=== PATIENT | female | born 1940 | race Caucasian/White ===

== ENCOUNTER 2019-08-17 01:42 | Inpatient (IN) | payer MEDICARE ==
--- NOTE | 2019-08-17 02:20 | CT ---
EXAMINATION TYPE: CT brain radha mojica con DATE OF EXAM: 08/17/2019 COMPARISON: None HISTORY: Fall Headache. Neck pain CT DLP: 1277.3 mGycm Automated exposure control for dose reduction was used. There is moderate diffuse cerebral atrophy. There is no mass effect nor midline shift. There is no si gn of intracranial hemorrhage. Calvarium appears intact. There is moderate mucosal thickening in the sphenoid and ethmoid sinuses. The calvarium is intact. There is multilevel anterior fusion surgery from C3 to C6. Vertebra show some straightening. The skul l base is intact. There is no evidence of a fracture. Posterior elements are intact. There is mild hy pertrophic multilevel facet arthropathy. IMPRESSION: Moderate cerebral atrophy. No acute intracranial abnormality. Multilevel cervical spine surgery. No acute bony abnormality. No fracture.
--- NOTE | 2019-08-17 02:24 | XR ---
EXAMINATION TYPE: XR chest 1V DATE OF EXAM: 08/17/2019 COMPARISON: NONE HISTORY: Fall. Pain. TECHNIQUE: FINDINGS: There is a 4 cm patch of airspace consolidation in the lateral right upper lobe. The other lung lucas are clear. There is no heart failure. Thoracic aorta is atheromatous. There is a left axi llary pacemaker. There is no pleural effusion or pneumothorax. IMPRESSION: Right upper lobe pneumonia. Normal heart. No heart failure seen. Old granulomatous diseas e.
[2019-08-17] MEDS ORDERED: AZITHROMYCIN 500 MG TAB PO STA (02:42)
[2019-08-17 03:14] LABS: Basophils # (A) 0.1 k/uL (0-0.2); Basophils % (A) 1 %; Eosinophils # (A) 0.2 k/uL (0-0.7); Eosinophils % (A) 2 %; HCT 33.4 % (34.0-46.0); HGB 11.4 gm/dL (11.4-16.0); Lymphocytes # (A) 1.1 k/uL (1.0-4.8); Lymphocytes % (A) 10 %; MCH 30.1 pg (25.0-35.0); MCHC 34.1 g/dL (31.0-37.0); MCV 88.1 fL (80.0-100.0); Mean Platelet Volume 7.9; Monocytes # (A) 0.6 k/uL (0-1.0); Monocytes % (A) 5 %; Neutrophils # (A) 8.4 k/uL (1.3-7.7); Neutrophils % (A) 80 %; Platelet Count 218 k/uL (150-450); RBC 3.79 m/uL (3.80-5.40); RDW 12.9 % (11.5-15.5); WBC 10.4 k/uL (3.8-10.6)
[2019-08-17 03:27] LABS: Albumin 3.3 g/dL (3.5-5.0); Calcium 8.6 mg/dL (8.4-10.2); Potassium 4.1 mmol/L (3.5-5.1); Total Bilirubin 0.6 mg/dL (0.2-1.3); Total Protein 6.9 g/dL (6.3-8.2)
[2019-08-17] MEDS ORDERED: DIPH,PERTUS(ACELL)TETVAC-LF 0.5 ML VIAL IM ONE (03:32)
[2019-08-17] MEDS ORDERED: NALOXONE 0.4 MG/ML 1 ML VIAL IV PRN (03:46)
--- NOTE | 2019-08-17 03:49 | ED ---
General Adult HPI - General Chief complaint: Fall Stated complaint: fall Time Seen by Provider: 08/17/19 01:49 Source: EMS, RN notes reviewed, old records reviewed Mode of arrival: EMS Limitations: altered mental status - History of Present Illness Initial comments: 79-year-old female patient past history significant for angina, hypertension presents to ED for chief complaint of fall. [facility]. Staff was a [facility] heard pathology. They went to evaluate patient and noted patient be on the ground. Appeared to have fallen out of bed. They were reportedly in room within seconds. No LOC noted. Pt was reportedly acting at baseline. Pt has an abrasion above left eye. Pt is not on any blood thinners. Denies any complaints. Does not know what happened. this is reportedly her baseline. Systemic: Pt denies fatigue, fever/chills, rash. Pt denies weakness, night sweats, weight loss. Neuro: Pt denies headache, visual disturbances, syncope or pre-syncope. HEENT: Pt denies ocular discharge or irritation, otalgia, rhinorrhea, pha ryngitis or notable lymphadenopathy. Cardiopulmonary: Pt denies chest pain, SOB, heart palpitations, dyspnea on exertion. Abdominal/GI: Pt denies abdominal pain, n/v/d. : Pt denies dysuria, burning w/ urination, frequency/urgency. Denies new onset urinary or bowel incontinence. MSK: Pt denies myalgia, loss of strength or function in extremities. Neuro: Pt denies new onset weakness, paresthesias. - Related Data Allergies Allergy/AdvReac Type Severity Reaction Status Date / Time penicillin V Allergy Unknown Verified 08/17/19 01:55 Review of Systems ROS Statement: Those systems with pertinent positive or pertinent negative responses have been documented in the HPI. ROS Other: All systems not noted in ROS Statement are negative. Past Medical History Past Medical History: Dementia, Hypertension History of Any Multi-Drug Resistant Organisms: Unobtainable Past Surgical History: Pacemaker Past Psychological History: Unable to Obtain Smoking Status: Unknown if ever smoked Past Alcohol Use History: Unable to Obtain Past Drug Use History: Unable to Obtain General Exam - General Exam Comments Initial Comments: Constitutional: NAD, Pleasantly demented. Pt has pleasant affect. HEENT: NC/AT, trachea midline, neck supple, no lymphadenopathy. Posterior pharynx non erythematous, without exudates. External ears appear normal, without discharge. Mucous membranes moist. Eyes PERRLA, EOM intact. There is no scleral icterus. No pallor noted. Cardiopulmonary: RRR, no murmurs, rubs or gallops, no JVD noted. Lungs CTAB in anterior and posterior lucas. No peripheral edema. Abdominal exam: Abdomen soft and non-distended. Abdomen non-tender to palpation in all 4 quadrants. Bowel sounds active in LLQ. No hepatosplenomegaly. No ecchymosis Neuro: CN II-XII grossly intact. No nuchal rigidity. No raccon eyes, no lala sign, no hemotympanum. No cervical spinal tenderness. MSK: Small abrasion and contusion above left eye. No posterior calf tenderness bilaterally, homans sign negative bilaterally. Posterior tibialis and radial pulse +2 bilaterally. Sensation intact in upper and lower extremities. Full active ROM in upper and lower extremities, 5/5 stregnth. Limitations: altered mental status Course Vital Signs 08/17/19 08/17/19 01:49 02:47 Temperature 98.2 F 97.9 F Pulse Rate 79 68 Respiratory 15 15 Rate Blood Pressure 128/82 129/59 O2 Sat by Pulse 95 96 Oximetry Medical Decision Making - Medical Decision Making 79-year-old female patient past history significant for angina, hypertension presents to ED for chief complaint of fall. [facility] lives in [facility]. Staff was a [facility] heard pathology. They went to evaluate patient and noted patient be on the ground. Appeared to have fallen out of bed. They were reportedly in room within seconds. No LOC noted. Pt was reportedly acting at baseline. Pt has an abrasion above left eye. Pt is not on any blood thinners. Denies any complaints. Does not know what happened. this is reportedly her baseline. Pt VSS, afebrile. Physical exam displayed: Small abrasion and contusion above left eye. O2 investigations revealed mildly increased BUN of 31. Otherwise nonimmpressive. CT brain and C-spine displayed moderate cerebral atrophy. No acute intracranial abnormality. Multilevel cervical spinal surgery. No bony abnormality. No fracture. Chest x-ray displayed a right upper lobe pneumonia. Normal heart, no heart failure seen. Old granulomatous disease. EKG is nonischemic. No prior for comparison. Patient will be admitted for community acquired pneumonia. Initiated on Rocephin and azithromycin. No known recent hospital stays. Pt will be admitted to hospital. Case discussed with Dr. Perez. - Lab Data Result diagrams: 08/17/19 01:45 08/17/19 01:45 Lab Results 08/17/19 08/17/19 08/17/19 Range/Units 01:45 01:45 01:45 WBC 10.4 (3.8-10.6) k/uL RBC 3.79 L (3.80-5.40) m/uL Hgb 11.4 (11.4-16.0) gm/dL Hct 33.4 L (34.0-46.0) % MCV 88.1 (80.0-100.0) fL MCH 30.1 (25.0-35.0) pg MCHC 34.1 (31.0-37.0) g/dL RDW 12.9 (11.5-15.5) % Plt Count 218 (150-450) k/uL Neutrophils % 80 % Lymphocytes % 10 % Monocytes % 5 % Eosinophils % 2 % Basophils % 1 % Neutrophils # 8.4 H (1.3-7.7) k/uL Lymphocytes # 1.1 (1.0-4.8) k/uL Monocytes # 0.6 (0-1.0) k/uL Eosinophils # 0.2 (0-0.7) k/uL Basophils # 0.1 (0-0.2) k/uL Sodium 140 (137-145) mmol/L Potassium 4.1 (3.5-5.1) mmol/L Chloride 109 H (98-107) mmol/L Carbon Dioxide 26 (22-30) mmol/L Anion Gap 5 mmol/L BUN 31 H (7-17) mg/dL Creatinine 0.91 (0.52-1.04) mg/dL Est GFR (CKD-EPI)AfAm 68 (>60 ml/min/1.73 sqM) Est GFR (CKD-EPI)NonAf 59 (>60 ml/min/1.73 sqM) Glucose 116 H (74-99) mg/dL Plasma Lactic Acid Grant (0.7-2.0) mmol/L Calcium 8.6 (8.4-10.2) mg/dL Total Bilirubin 0.6 (0.2-1.3) mg/dL AST 26 (14-36) U/L ALT 15 (4-34) U/L Alkaline Phosphatase 65 (38-126) U/L Troponin I <0.012 (0.000-0.034) ng/mL Total Protein 6.9 (6.3-8.2) g/dL Albumin 3.3 L (3.5-5.0) g/dL Influenza Type A RNA (Not Detectd) Influenza Type B (PCR) (Not Detectd) 08/17/19 08/17/19 Range/Units 02:58 03:20 WBC (3.8-10.6) k/uL RBC (3.80-5.40) m/uL Hgb (11.4-16.0) gm/dL Hct (34.0-46.0) % MCV (80.0-100.0) fL MCH (25.0-35.0) pg MCHC (31.0-37.0) g/dL RDW (11.5-15.5) % Plt Count (150-450) k/uL Neutrophils % % Lymphocytes % % Monocytes % % Eosinophils % % Basophils % % Neutrophils # (1.3-7.7) k/uL Lymphocytes # (1.0-4.8) k/uL Monocytes # (0-1.0) k/uL Eosinophils # (0-0.7) k/uL Basophils # (0-0.2) k/uL Sodium (137-145) mmol/L Potassium (3.5-5.1) mmol/L Chloride (98-107) mmol/L Carbon Dioxide (22-30) mmol/L Anion Gap mmol/L BUN (7-17) mg/dL Creatinine (0.52-1.04) mg/dL Est GFR (CKD-EPI)AfAm (>60 ml/min/1.73 sqM) Est GFR (CKD-EPI)NonAf (>60 ml/min/1.73 sqM) Glucose (74-99) mg/dL Plasma Lactic Acid Grant 0.5 L (0.7-2.0) mmol/L Calcium (8.4-10.2) mg/dL Total Bilirubin (0.2-1.3) mg/dL AST (14-36) U/L ALT (4-34) U/L Alkaline Phosphatase (38-126) U/L Troponin I (0.000-0.034) ng/mL Total Protein (6.3-8.2) g/dL Albumin (3.5-5.0) g/dL Influenza Type A RNA Not Detected (Not Detectd) Influenza Type B (PCR) Not Detected (Not Detectd) - EKG Data -: EKG Interpreted by Me (and Dr. Perez) EKG Comments: Ventricular rate 71,. Full 166, QRS 74, QT/QTC 374/46. Normal sensory, lateral T-wave inversions noted. No prior for comparison. Disposition Clinical Impression: Community acquired pneumonia Disposition: ADMITTED IP TO THIS HOSP Condition: Serious Is patient prescribed a controlled substance at d/c from ED?: No Referrals: Juma Barker MD [Primary Care Provider] - 1-2 days
[2019-08-17] MEDS ORDERED: SODIUM CHLORIDE 0.9% 500 ML 500 ML IV STA (03:55)
[2019-08-17] MEDS: SODIUM CHLORIDE 0.9% 1,000 ML IV SCH ×2 (04:36→19:36)
[2019-08-17] MEDS ORDERED: IBUPROFEN 600 MG TAB PO PRN (10:33)
[2019-08-17] MEDS: ENOXAPARIN 40 MG/0.4 ML SYRINGE SQ SCH (12:43)
[2019-08-17] MEDS: MEMANTINE 10 MG TAB PO SCH ×2 (17:07→19:34)
[2019-08-17] MEDS ORDERED: ASPIRIN 81 MG PO SCH (20:00)
[2019-08-17] MEDS ORDERED: LOSARTAN 50 MG TAB PO SCH (20:00)
[2019-08-17] MEDS ORDERED: amLODIPine 10 MG TAB PO SCH (20:00)
--- NOTE | 2019-08-17 20:18 | P.HPIM ---
History of Present Illness H&P Date: 08/17/19 Chief Complaint: fell out of bed History of presenting complaint: This is a 79-year-old patient with the resident of [facility]. Antabuse little confused. Able to carry out a conversation tangent all directions. Staff at the [facility] heard a thud and went in and saw the patient was sleeping had rolled off the bed onto the floor. EMS was called out. Was sitting up in a chair. With the staff she was acting normal self. No confused. Which is her baseline. Was a small abrasion around the left eye and some swelling of the left nostril. Patient's brought to the ER. In the ER was a question of infiltrate on the computed tomography scan and admitted with a dose of antibiotic for pneumonia. Patient is a very poor historian. There is no documented fever or white count. Patient is tolerating her diet. Denies any cough. No sputum production. cheerful otherwise. Confused. Review of systems: GEN.: None EYES: Small abrasion above the left eye HEENT: None NECK: None RESPIRATORY: None CARDIOVASCULAR: None GASTROINTESTINAL: None GENITOURINARY: None MUSCULOSKELETAL: None LYMPHATICS: None HEMATOLOGICAL: None PSYCHIATRY: Baseline confused NEUROLOGICAL: None Past medical history to include: Dementia, hypertension, hypothyroid, CK disease stage III, sick sinus syndrome a pacemaker, incontinence Social history: Patient lives at [facility]. Has a public legal guardian. Ambulate independently. Pleasantly confused. Feet herself. No history of smoking or alcohol that is known. Family history: Patient cannot tell Physical examination: VITAL SIGNS: 98.2, 79, 15, 128/82, 95% room air GENERAL: [BMI 22.6, sitting up in the bed awake comfortable. EYES: Pupils equal. Conjunctiva normal. HEENT: External appearance of nose and ears normal, oral cavity grossly normal. NECK: JVD not raised; masses not palpable. HEART: First and second heart sounds are normal; no edema. LUNGS: Respiratory rate normal; clear to auscultation. ABDOMEN: Soft, nontender, liver spleen not palpable, no masses palpable. PSYCH: Pleasant 60 confusedl. NEUROLOGICAL: Cranial nerves grossly intact; no facial asymmetry, power and se nsation grossly intact. LYMPHATICS: No lymph nodes palpable in the axilla and neck DERMATOLOGICAL: Slight bruising about the left eye, slight bruising: Left nostril INVESTIGATIONS, reviewed in the clinical context: White count 10.4 hemoglobin 11.4 platelets 208 potassium 4.1 bun 31 creatinine 0.91 Influenza a and B both negative EKG tracing personally reviewed by me-normal sinus rhythm Chest x-ray film personally reviewed by me-shows right upper lobe infiltrate Assessment: -Right upper lobe pneumonia suspect gram-negative organism -Fall from the bed onto the floor while patient was sleeping. No obvious precipitating factor. 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 Home medications resumed. Lovenox for DVT prophylaxis. Given IV fluids. Patient appetite is fair. We'll switch the patient over to oral antibiotics tomorrow. Past Medical History Past Medical History: Dementia, Hypertension History of Any Multi-Drug Resistant Organisms: Unobtainable Past Surgical History: Pacemaker Past Psychological History: Unable to Obtain Smoking Status: Unknown if ever smoked Past Alcohol Use History: Unable to Obtain Past Drug Use History: Unable to Obtain - Past Family History Father Family Medical History: Unable to Obtain Mother Family Medical History: Unable to Obtain Medications and Allergies Home Medications Medication Instructions Recorded Confirmed Type Aspirin EC [Ecotrin Low Dose] 81 mg PO HS@199908/17/19 08/17/19 History Ibuprofen [Motrin] 600 mg PO Q6H PRN 08/17/19 08/17/19 History Irbesartan [Avapro] 150 mg PO HS@199908/17/19 08/17/19 History Levothyroxine Sodium 112 mcg PO SUMOTUWETHSA@0600 08/17/19 08/17/19 History Levothyroxine Sodium [Synthroid] 56 mcg PO FR@0600 08/17/19 08/17/19 History Memantine [Namenda] 10 mg PO BID@0800,199908/17/19 08/17/19 History Oyster Shell 500mg + Vit D3 400iu 1 tab PO BID@0800,199908/17/19 08/17/19 History amLODIPine [Norvasc] 10 mg PO HS@199908/17/19 08/17/19 History Allergies Allergy/AdvReac Type Severity Reaction Status Date / Time penicillin V Allergy Unknown Verified 08/17/19 07:41 Physical Exam Vitals: Vital Signs Temp Pulse Resp BP Pulse Ox 08/17/19 06:10 98.0 F 82 14 150/67 97 08/17/19 04:38 77 15 166/77 96 08/17/19 04:01 66 16 142/63 96 08/17/19 02:47 97.9 F 68 15 129/59 96 08/17/19 01:49 98.2 F 79 15 128/82 95 Intake and Output 08/16/19 08/17/19 08/17/19 22:59 06:59 14:59 Other: Weight 63.503 kg Results CBC & Chem 7: 08/17/19 01:45 08/17/19 01:45 Labs: Abnormal Lab Results - Last 24 Hours (Table) 08/17/19 08/17/19 08/17/19 Range/Units 01:45 01:45 02:58 RBC 3.79 L (3.80-5.40) m/uL Hct 33.4 L (34.0-46.0) % Neutrophils # 8.4 H (1.3-7.7) k/uL Chloride 109 H (98-107) mmol/L BUN 31 H (7-17) mg/dL Glucose 116 H (74-99) mg/dL Plasma Lactic Acid Grant 0.5 L (0.7-2.0) mmol/L Albumin 3.3 L (3.5-5.0) g/dL
[2019-08-17] MEDS ORDERED: AZITHROMYCIN 500 MG in SODIUM CHLORIDE 0.9% 250 ML IVPB SCH (21:00)
[2019-08-18 00:36] LABS: Appearance,Urine Clear (Clear); Bilirubin,Urine Negative (Negative); Blood,Urine Negative (Negative); Color,Urine Yellow; Glucose,Urine (UA) Negative (Negative); Ketones,Urine Negative (Negative); Leukocyte Esterase,Urine Negative (Negative); Mucus,Urine Rare /hpf; Nitrite,Urine Negative (Negative); Protein,Urine 1+ (Negative); RBC,Urine 2 /hpf (0-5); Specific Gravity,Urine 1.025 (1.001-1.035); Urobilinogen,Urine <2.0 mg/dL (<2.0); WBC,Urine 1 /hpf (0-5)
[2019-08-18] MEDS: SODIUM CHLORIDE 0.9% 1,000 ML IV SCH (06:02)
[2019-08-18] MEDS ORDERED: LEVOTHYROXINE 112 MCG TAB PO SCH (06:30)
[2019-08-18] MEDS: MEMANTINE 10 MG TAB PO SCH (09:11)
[2019-08-18] MEDS: ENOXAPARIN 40 MG/0.4 ML SYRINGE SQ SCH (09:11)
[2019-08-18 12:18] VITALS: BP 117/56; PULSE 78; RESP 16; TEMP 99.1
--- NOTE | 2019-08-18 12:20 | P.DS ---
Providers Date of admission: 08/17/19 06:28 Expected date of discharge: 08/18/19 Attending physician: Rhett Ingram Primary care physician: Juma [facility] [place] Course: Chief Complaint: fell out of bed History of presenting complaint: This is a 79-year-old patient with the resident of [facility]. At baseline pleasantly confused. Able to carry out a conversation tangent all directions. Staff at the [facility] heard a thud and went in and saw the patient was sleeping had rolled off the bed onto the floor. EMS was called out. Was sitting up in a chair. With the staff she was acting normal self. Baseline confused. Which is her baseline. a small abrasion around the left eye and some swelling of the left nostril. Patient's brought to the ER. In the ER was a question of infiltrate on the computed tomography scan and admitted with antibiotic for pneumonia. Patient is a very poor historian. There is no documented fever or white count. Patient is tolerating her diet. Denies any cough. No sputum production. cheerful otherwise. Confused. Today-very well. Slight nasal congestion. Otherwise comfortable Physical examination: VITAL SIGNS: 98.2, 81, 18, 107 but 53, 93% room air GENERAL: Laying in bed, comfortable EYES: Pupils equal. Conjunctiva normal. Slight abrasion above left eye healing well NECK: JVD not raised; masses not palpable. HEART: First and second heart sounds are normal; no edema. LUNGS: Respiratory rate normal; clear to auscultation. ABDOMEN: Soft, nontender, liver spleen not palpable, no masses palpable. PSYCH: Able to answer simple questions DERMATOLOGICAL: Slight bruising about the left eye, slight bruising: Left nostril INVESTIGATIONS, reviewed in the clinical context: White count 10.4 hemoglobin 11.4 platelets 208 potassium 4.1 bun 31 creatinine 0.91 Influenza a and B both negative EKG tracing personally reviewed by me-normal sinus rhythm Chest x-ray film personally reviewed by me-shows right upper lobe infiltrate Assessment: -Right upper lobe pneumonia suspect gram-negative organism -Fall from the bed onto the floor while patient was sleeping. 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 -Essential hypertension -Hypothyroid - sinus syndrome with a pacemaker -Public legal guardian Disposition: Assisted-living Patient Condition at Discharge: Stable Plan - Discharge Summary Discharge Rx Participant: No New Discharge Prescriptions: New Cefdinir [Omnicef] 300 mg PO Q12HR #6 capsule Continue Ibuprofen [Motrin] 600 mg PO Q6H PRN PRN Reason: Pain Levothyroxine Sodium [Synthroid] 56 mcg PO FR@0600 Oyster Shell 500mg + Vit D3 400iu 1 tab PO BID@799,1999 Levothyroxine Sodium 112 mcg PO SUMOTUWETHSA@0600 Memantine [Namenda] 10 mg PO BID@799,1999 Irbesartan [Avapro] 150 mg PO HS@1999 Aspirin EC [Ecotrin Low Dose] 81 mg PO HS@1999 amLODIPine [Norvasc] 10 mg PO HS@1999 Discharge Medication List Aspirin EC [Ecotrin Low Dose] 81 mg PO HS@199908/17/19 [History] Ibuprofen [Motrin] 600 mg PO Q6H PRN 08/17/19 [History] Irbesartan [Avapro] 150 mg PO HS@199908/17/19 [History] Levothyroxine Sodium 112 mcg PO SUMOTUWETHSA@0600 08/17/19 [History] Levothyroxine Sodium [Synthroid] 56 mcg PO FR@0600 08/17/19 [History] Memantine [Namenda] 10 mg PO BID@0800,199908/17/19 [History] Oyster Shell 500mg + Vit D3 400iu 1 tab PO BID@0800,199908/17/19 [History] amLODIPine [Norvasc] 10 mg PO HS@199908/17/19 [History] Cefdinir [Omnicef] 300 mg PO Q12HR #6 capsule 08/18/19 [Rx] Follow up Appointment(s)/Referral(s): Juma Barker MD [Primary Care Provider] - 1-2 days
[2019-08-21] MEDS ORDERED: LEVOTHYROXINE 112 MCG TAB PO SCH (06:30)
== END 2019-08-18 14:39 | disposition home health service (06) | DRG 179 ==
LOC: EEVIPCON 01:42 → SUPCPDRO 01:42 → EC 01:42 → 5NMEDONC 06:28
PROVIDERS: ADMIT Hospitalist; ATTEND Hospitalist
DX: J15.6 Pneumonia due to other Gram-negative bacteria (principal); E03.9 Hypothyroidism, unspecified; F02.80 Dementia in other diseases classified elsewhere, unspecified severity, without behavioral disturbance, psychotic disturbance, mood disturbance, and anxiety; G30.1 Alzheimer's disease with late onset; S00.212A Abrasion of left eyelid and periocular area, initial encounter; W06.XXXA Fall from bed, initial encounter; Z79.890 Hormone replacement therapy; Z79.899 Other long term (current) drug therapy; I12.9 Hypertensive chronic kidney disease with stage 1 through stage 4 chronic kidney disease, or unspecified chronic kidney disease; N18.3 Chronic kidney disease, stage 3 (moderate); R32 Unspecified urinary incontinence; Z88.0 Allergy status to penicillin
CPT/HCPCS: 36415; 70450; 71045; 72125; 80053; 81001; 83605; 84484; 85025; 87502; 90471; 90715; 93005; 96365; 96372; 99285

== ENCOUNTER 2020-08-18 11:04 | Inpatient (IN) | payer MEDICARE ==
[2020-08-18] MEDS ORDERED: SODIUM CHLORIDE 0.9% 1,000 ML IV STA (11:26)
--- NOTE | 2020-08-18 11:30 | ED ---
Seizure HPI - General Chief Complaint: Seizure Stated Complaint: Seizure Time Seen by Provider: 08/18/20 11:04 Source: EMS, RN notes reviewed, old records reviewed Mode of arrival: EMS Limitations: altered mental status - History of Present Illness Initial Comments: This is an 80-year-old with a history of dementia also hypertension who apparently started trazodone yesterday but today was noted have a seizure there is reported to be tonic-clonic lasting 2-3 minutes. It is unknown if there was head trauma involved. Patient was brought in by EMS with a cervical collar on. No reports of recent fevers chills nausea vomiting sweats diarrhea constipation. MD Complaint: seizure - Related Data Home Medications Medication Instructions Recorded Confirmed Aspirin EC [Ecotrin Low Dose] 81 mg PO DAILY@79908/17/19 08/18/20 Irbesartan [Avapro] 150 mg PO HS@199908/17/19 08/18/20 Levothyroxine Sodium 112 mcg PO SUMOTUWETHSA@59908/17/19 08/18/20 Levothyroxine Sodium [Synthroid] 56 mcg PO FR@59908/17/19 08/18/20 Memantine [Namenda] 10 mg PO BID@08,199908/17/19 08/18/20 Oyster Shell 500mg + Vit D3 400iu 1 tab PO DAILY@79908/17/19 08/18/20 Cholecalciferol [Vitamin D3 (25 1,000 unit PO DAILY@0800 08/18/20 08/18/20 Mcg = 1000 Iu)] Cyanocobalamin (Vitamin B-12) 1,000 mcg PO DAILY@0808/18/20 08/18/20 [Vitamin B-12] Docusate [Colace] 100 mg PO DAILY@0808/18/20 08/18/20 LORazepam [Ativan] 0.5 mg PO BID PRN 08/18/20 08/18/20 Melatonin 6 mg PO HS@199908/18/20 08/18/20 QUEtiapine [SEROquel] 25 mg PO DAILY@1200 08/18/20 08/18/20 amLODIPine [Norvasc] 5 mg PO HS@199908/18/20 08/18/20 busPIRone HCl [Buspar] 5 mg PO BID@0800,199908/18/20 08/18/20 traZODone HCL [Desyrel] 50 mg PO HS@199908/18/20 08/18/20 Allergies Allergy/AdvReac Type Severity Reaction Status Date / Time penicillin V Allergy Unknown Verified 08/18/20 11:30 Review of Systems ROS Statement: Those systems with pertinent positive or pertinent negative responses have been documented in the HPI. ROS Other: All systems not noted in ROS Statement are negative. Past Medical History Past Medical History: Dementia, Hypertension Additional Past Medical History / Comment(s): hypothyroid, CKD stage III, jamar min D defiency, SSS with pacer, occasional incontinence History of Any Multi-Drug Resistant Organisms: Unobtainable Past Surgical History: Pacemaker Past Anesthesia/Blood Transfusion Reactions: Unable to Obtain Type of Cardiac Device: Permanent Pacemaker Device Placement Date:: Public legal guardian believes pacer was placed sometime in 2019. Past Psychological History: Unable to Obtain Past Alcohol Use History: Unable to Obtain Past Drug Use History: Unable to Obtain - Past Family History Father Family Medical History: Unable to Obtain Mother Family Medical History: Unable to Obtain General Exam - General Exam Comments Initial Comments: Is a well-developed asthenic appearing female who is awake and alert but nonverbal with a cervical collar in place. No external signs of trauma Limitations: altered mental status General appearance: alert, in no apparent distress Head exam: Present: atraumatic, normocephalic, normal inspection Eye exam: Present: normal appearance, PERRL, EOMI. Absent: scleral icterus, conjunctival injection, periorbital swelling ENT exam: Present: mucous membranes dry Neck exam: Present: normal inspection, other (Cervical collar in place no definite tenderness palpation). Absent: tenderness, meningismus, lymphadenopathy Respiratory exam: Present: normal lung sounds bilaterally. Absent: respiratory distress, wheezes, rales, rhonchi, stridor Cardiovascular Exam: Present: regular rate, normal rhythm, normal heart sounds. Absent: systolic murmur, diastolic murmur, rubs, gallop, clicks GI/Abdominal exam: Present: soft, normal bowel sounds. Absent: distended, tenderness, guarding, rebound, rigid Extremities exam: Present: normal inspection, full ROM, normal capillary refill. Absent: tenderness, pedal edema, joint swelling, calf tenderness Back exam: Present: normal inspection Neurological exam: Present: alert, altered, CN II-XII intact Psychiatric exam: Present: flat affect Skin exam: Present: warm, dry, intact, normal color. Absent: rash Course Vital Signs 08/18/20 08/18/20 08/18/20 11:12 11:37 13:57 Temperature 97.6 F 97.6 F 97.8 F Pulse Rate 79 76 74 Respiratory 16 16 16 Rate Blood Pressure 138/81 144/72 O2 Sat by Pulse 99 100 95 Oximetry - Reevaluation(s) Reevaluation #1: 08/18/20 13:17 The cervical spine is cleared I did remove the cervical collar. Medical Decision Making - Medical Decision Making The patient's poor historian I did discuss case with Dr. Ingram who does cover the visiting physician. Patient be admitted with neurology consultation - Lab Data Result diagrams: 08/18/20 11:36 08/18/20 11:36 Lab Results 08/18/20 08/18/20 08/18/20 Range/Units 11:36 11:36 11:36 WBC 8.1 (3.8-10.6) k/uL RBC 4.67 (3.80-5.40) m/uL Hgb 13.8 (11.4-16.0) gm/dL Hct 42.2 (34.0-46.0) % MCV 90.3 (80.0-100.0) fL MCH 29.5 (25.0-35.0) pg MCHC 32.7 (31.0-37.0) g/dL RDW 14.4 (11.5-15.5) % Plt Count 191 (150-450) k/uL MPV 7.4 Neutrophils % 81 % Lymphocytes % 12 % Monocytes % 4 % Eosinophils % 1 % Basophils % 0 % Neutrophils # 6.6 (1.3-7.7) k/uL Lymphocytes # 1.0 (1.0-4.8) k/uL Monocytes # 0.3 (0-1.0) k/uL Eosinophils # 0.1 (0-0.7) k/uL Basophils # 0.0 (0-0.2) k/uL Sodium 142 (137-145) mmol/L Potassium 4.8 (3.5-5.1) mmol/L Chloride 106 (98-107) mmol/L Carbon Dioxide 32 H (22-30) mmol/L Anion Gap 4 mmol/L BUN 40 H (7-17) mg/dL Creatinine 1.35 H (0.52-1.04) mg/dL Est GFR (CKD-EPI)AfAm 42 (>60 ml/min/1.73 sqM) Est GFR (CKD-EPI)NonAf 37 (>60 ml/min/1.73 sqM) Glucose 79 (74-99) mg/dL Calcium 9.8 (8.4-10.2) mg/dL Magnesium 2.0 (1.6-2.3) mg/dL Total Bilirubin 0.3 (0.2-1.3) mg/dL AST 68 H (14-36) U/L ALT 69 H (4-34) U/L Alkaline Phosphatase 106 (38-126) U/L Creatine Kinase 556 H (30-135) U/L Troponin I <0.012 (0.000-0.034) ng/mL Total Protein 7.9 (6.3-8.2) g/dL Albumin 4.1 (3.5-5.0) g/dL - EKG Data -: EKG Interpreted by Pa EKG Comments: Sinus rhythm first-degree AV block rate 79. Interval 254 QRS 76 QT/QTC 376/431 and normal QRS-T angle - Radiology Data Radiology results: report reviewed (Imaging reviewed no acute findings seen.), image reviewed Disposition Clinical Impression: New onset seizure, Renal insufficiency, Dehydration Disposition: ADMITTED IP TO THIS [facility] Condition: Fair Referrals: Juma Barker MD [Primary Care Provider] - 1-2 days
[2020-08-18 11:44] LABS: Basophils % (A) 0 %; Eosinophils # (A) 0.1 k/uL (0-0.7); Eosinophils % (A) 1 %; HCT 42.2 % (34.0-46.0); HGB 13.8 gm/dL (11.4-16.0); Lymphocytes % (A) 12 %; MCH 29.5 pg (25.0-35.0); MCHC 32.7 g/dL (31.0-37.0); MCV 90.3 fL (80.0-100.0); Mean Platelet Volume 7.4; Monocytes # (A) 0.3 k/uL (0-1.0); Monocytes % (A) 4 %; Neutrophils # (A) 6.6 k/uL (1.3-7.7); Neutrophils % (A) 81 %; Platelet Count 191 k/uL (150-450); RBC 4.67 m/uL (3.80-5.40); RDW 14.4 % (11.5-15.5); WBC 8.1 k/uL (3.8-10.6)
[2020-08-18 11:57] LABS: Albumin 4.1 g/dL (3.5-5.0); Calcium 9.8 mg/dL (8.4-10.2); Potassium 4.8 mmol/L (3.5-5.1); Total Bilirubin 0.3 mg/dL (0.2-1.3); Total Protein 7.9 g/dL (6.3-8.2)
--- NOTE | 2020-08-18 12:31 | CT ---
EXAMINATION TYPE: CT brain cspine wo con DATE OF EXAM: 08/18/2020 COMPARISON: Trauma CT August 17, 2019 HISTORY: Possible seizure today with trauma. Headache and neck pain. CT DLP: 1402.2 mGycm. Automated Exposure Control for Dose Reduction was Utilized. TECHNIQUE: CT scan of the head and cervical spine are performed without contrast. FINDINGS: There is no acute intracranial hemorrhage or midline shift identified. Moderate ventricul ar and sulcal prominence greatest over bilateral temporal lobes left greater than right where more se rama atrophy is redemonstrated. The calvarium is intact. Moderate low-attenuation in the periventricu lar white matter The globes are intact and the visualized sinuses are now clear. Cervical spine is visualized in its entirety from C1 through upper thoracic levels and demonstrates s table alignment without evidence of acute fracture or dislocation. There is anterior fusion plate fr om C3 through C6 level redemonstrated. There is artificial disc material with ossific fusion noted. R eversal of normal cervical curvature redemonstrated. Some effacement anterior thecal sac due to poste rior bony projection remains present similar to prior. Prevertebral soft tissue appears within normal limits. The C1-C2 articulation is stable on coronal images. Slight grade 1 anterolisthesis C2 on C 3 remains present. Prominent anterior spurring C2-C3 level. Moderate disc space narrowing with modera te anterior spurring C6-C7 level. Posterior spur disc complex effaces the anterior thecal sac at this level similar to prior, marginal spurring causes moderate to advanced bilateral neural foraminal john rowing on axial images similar to prior. Axial images show multilevel left-sided uncovertebral facet degenerative changes contributing to mult ilevel left-sided neural foraminal narrowing. There is moderate calcified plaque left carotid bulb le guilherme. There is peripheral reticulation and fibrosis in the upper lungs redemonstrated. Some mosaic att enuation could reflect early edema and/or infiltrates, correlate clinically. IMPRESSION: 1. There is no acute fracture or dislocation evident in the cervical spine. 2. No acute intracranial hemorrhage or midline shift is seen.
[2020-08-18] MEDS ORDERED: NALOXONE 0.4 MG/ML 1 ML VIAL IV PRN (14:12)
[2020-08-18] MEDS ORDERED: SODIUM CHLORIDE 0.9% 1,000 ML IV SCH (14:15)
[2020-08-18] MEDS ORDERED: LORazepam 0.5 MG TAB PO PRN (14:15)
[2020-08-18] MEDS ORDERED: levETIRAcetam IV 1,000 MG in SALINE 1 100ML.BAG IVPB STA (15:22)
--- NOTE | 2020-08-18 15:26 | ED ---
Medical Decision Making - Medical Decision Making The patient was noted to have a 1-2 minute tonic-clonic episode of seizure activity. There is apparent evidence of tongue biting a urinary incontinence. Patient was given IV Ativan as well as 1 g of Keppra ordered. Dr. Ingram and Dr. Sawant to be notified - Lab Data Result diagrams: 08/18/20 11:36 08/18/20 11:36 Lab Results 08/18/20 08/18/20 08/18/20 Range/Units 11:36 11:36 11:36 WBC 8.1 (3.8-10.6) k/uL RBC 4.67 (3.80-5.40) m/uL Hgb 13.8 (11.4-16.0) gm/dL Hct 42.2 (34.0-46.0) % MCV 90.3 (80.0-100.0) fL MCH 29.5 (25.0-35.0) pg MCHC 32.7 (31.0-37.0) g/dL RDW 14.4 (11.5-15.5) % Plt Count 191 (150-450) k/uL MPV 7.4 Neutrophils % 81 % Lymphocytes % 12 % Monocytes % 4 % Eosinophils % 1 % Basophils % 0 % Neutrophils # 6.6 (1.3-7.7) k/uL Lymphocytes # 1.0 (1.0-4.8) k/uL Monocytes # 0.3 (0-1.0) k/uL Eosinophils # 0.1 (0-0.7) k/uL Basophils # 0.0 (0-0.2) k/uL Sodium 142 (137-145) mmol/L Potassium 4.8 (3.5-5.1) mmol/L Chloride 106 (98-107) mmol/L Carbon Dioxide 32 H (22-30) mmol/L Anion Gap 4 mmol/L BUN 40 H (7-17) mg/dL Creatinine 1.35 H (0.52-1.04) mg/dL Est GFR (CKD-EPI)AfAm 42 (>60 ml/min/1.73 sqM) Est GFR (CKD-EPI)NonAf 37 (>60 ml/min/1.73 sqM) Glucose 79 (74-99) mg/dL Calcium 9.8 (8.4-10.2) mg/dL Magnesium 2.0 (1.6-2.3) mg/dL Total Bilirubin 0.3 (0.2-1.3) mg/dL AST 68 H (14-36) U/L ALT 69 H (4-34) U/L Alkaline Phosphatase 106 (38-126) U/L Creatine Kinase 556 H (30-135) U/L Troponin I <0.012 (0.000-0.034) ng/mL Total Protein 7.9 (6.3-8.2) g/dL Albumin 4.1 (3.5-5.0) g/dL Disposition Clinical Impression: New onset seizure, Renal insufficiency, Dehydration Disposition: ADMITTED IP TO THIS HOSP Condition: Fair
[2020-08-18] MEDS ORDERED: LORazepam 2 MG/ML INJ IV STA (15:30)
--- NOTE | 2020-08-18 15:55 | XR ---
EXAMINATION TYPE: XR chest 1V portable DATE OF EXAM: 08/18/2020 COMPARISON: 08/17/2019 HISTORY: Seizure possible aspiration TECHNIQUE: Single frontal view of the chest is obtained. FINDINGS: There is interval near complete resolution of right upper lobe infiltrate. COPD is seen an d is a cardiac device. There is bilateral lower lobe infiltrate. No pleural effusion. No pneumothorax . Diffuse osteopenia. IMPRESSION: 1. Bilateral lower lobe infiltrate. 2. Resolution of right upper lobe infiltrate.
[2020-08-18 18:11] LABS: Glucose,Whole Blood 99 mg/dL (75-99)
--- NOTE | 2020-08-18 22:23 | P.HPIM ---
History of Present Illness H&P Date: 08/18/20 Chief Complaint: Tonic-clonic seizure History of presenting complaint: This is a 80-year-old patient with the resident of [facility]. Being followed by visiting physicians Dr. Barker. Chronic stable medical conditions include advanced cognitive impairment, height essential hypertension, hypothyroid. As per the EMS report patient was walking through the house when she fell and began having a full-body seizure that lasted about 3 minutes. Initially patient was difficult to arouse then became alert to self. monitor technician did show sinus rhythm. In the ER the patient had a second episode. And was given IV Keppra by the ER physician. Neurology was consulted. EMS at placed in a c-collar. When I came to see the patient this evening patient still in a post ictal state. Unable to open any further history. No trazodone was started the day before. Review of systems: Unable to obtain patient's postictal Past medical history to include: Dementia, hypertension, hypothyroid, CK disease stage III, sick sinus syndrome a pacemaker, incontinence Social history: Patient lives at [facility]. Has a public legal guardian. Ambulate independently. Pleasantly confused. . No history of smoking or alcohol that is known. Family history: Patient cannot tell Physical examination: VITAL SIGNS: 97.7, 78, 16, 150/79, 94% room air GENERAL: Laying in bed, eyes awake lethargic, postictal EYES: Pupils equal. Conjunctiva normal. HEENT: External appearance of nose and ears normal, oral cavity grossly normal. NECK: JVD not raised; masses not palpable. HEART: First and second heart sounds are normal; no edema. LUNGS: Respiratory rate normal; clear to auscultation. ABDOMEN: Soft, nontender, liver spleen not palpable, no masses palpable. PSYCH: Unable to assess NEUROLOGICAL: Cranial nerves grossly intact; no facial asymmetry, moving all limbs LYMPHATICS: No lymph nodes palpable in the axilla and neck INVESTIGATIONS, reviewed in the clinical context: White count 8.1 hemoglobin 13.8 platelets 191 potassium 4.8 bun 40 creatinine 1.35 EKG tracing normal sinus rhythm nonspecific T-wave changes Computed tomography scan of the brain and C-spine without contrast-no fracture reported Chest x-ray film personally reviewed by ct-portable, expiratory film, possible infiltrate Assessment: -Witnessed tonic-clonic seizures 2; 1 at the assisted, and other 1 in the ER. 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 Seizure precautions. Has a sitter. Did receive IV Keppra in the ER. Neurology consulted. Lovenox for DVT prophylaxis. Aspiration precautions. Past Medical History Past Medical History: Dementia, Hypertension Additional Past Medical History / Comment(s): hypothyroid, CKD stage III, vitamin D defiency, SSS with pacer, occasional incontinence History of Any Multi-Drug Resistant Organisms: Unobtainable Past Surgical History: Pacemaker Past Anesthesia/Blood Transfusion Reactions: Unable to Obtain Type of Cardiac Device: Permanent Pacemaker Device Placement Date:: Public legal guardian believes pacer was placed sometime in 2019. Past Psychological History: Unable to Obtain Additional Psychological History / Comment(s): Pt resides at [facility]. She is normally very confused and pleasant. She ambulates inde pendently. She feeds herself. She needs prompting to urinate and have bowel movements. Smoking Status: Unknown if ever smoked Past Alcohol Use History: Unable to Obtain Past Drug Use History: Unable to Obtain - Past Family History Father Family Medical History: Unable to Obtain Mother Family Medical History: Unable to Obtain Medications and Allergies Home Medications Medication Instructions Recorded Confirmed Type Aspirin EC [Ecotrin Low Dose] 81 mg PO DAILY@79908/17/19 08/18/20 History Irbesartan [Avapro] 150 mg PO HS@199908/17/19 08/18/20 History Levothyroxine Sodium 112 mcg PO SUMOTUWETHSA@59908/17/19 08/18/20 History Levothyroxine Sodium [Synthroid] 56 mcg PO FR@59908/17/19 08/18/20 History Memantine [Namenda] 10 mg PO BID@799,199908/17/19 08/18/20 History Oyster Shell 500mg + Vit D3 400iu 1 tab PO DAILY@79908/17/19 08/18/20 History Cholecalciferol [Vitamin D3 (25 1,000 unit PO DAILY@79908/18/20 08/18/20 History Mcg = 1000 Iu)] Cyanocobalamin (Vitamin B-12) 1,000 mcg PO DAILY@0800 08/18/20 08/18/20 History [Vitamin B-12] Docusate [Colace] 100 mg PO DAILY@0800 08/18/20 08/18/20 History LORazepam [Ativan] 0.5 mg PO BID PRN 08/18/20 08/18/20 History Melatonin 6 mg PO HS@199908/18/20 08/18/20 History QUEtiapine [SEROquel] 25 mg PO DAILY@1200 08/18/20 08/18/20 History amLODIPine [Norvasc] 5 mg PO HS@199908/18/20 08/18/20 History busPIRone HCl [Buspar] 5 mg PO BID@0800,199908/18/20 08/18/20 History traZODone HCL [Desyrel] 50 mg PO HS@199908/18/20 08/18/20 History Allergies Allergy/AdvReac Type Severity Reaction Status Date / Time penicillin V Allergy Unknown Verified 08/18/20 11:30 Physical Exam Vitals: Vital Signs Temp Pulse Pulse Resp BP BP Pulse Ox 08/18/20 18:29 98.0 F 72 18 138/71 100 08/18/20 17:50 97.7 F 78 16 150/79 94 L 08/18/20 17:20 18 08/18/20 17:07 97.9 F 84 16 117/82 95 08/18/20 16:32 97.9 F 62 16 76/45 99 08/18/20 16:14 97.9 F 76 16 87/56 99 08/18/20 16:03 97.9 F 67 16 76/42 95 08/18/20 15:36 97.9 F 72 18 92/63 99 08/18/20 14:40 97.9 F 79 16 144/72 98 08/18/20 13:57 97.8 F 74 16 144/72 95 08/18/20 11:37 97.6 F 76 16 138/81 100 08/18/20 11:12 97.6 F 79 16 99 Intake and Output 08/18/20 08/18/20 08/18/20 06:59 14:59 22:59 Other: Weight 79.379 kg Results CBC & Chem 7: 08/18/20 11:36 08/18/20 11:36 Labs: Abnormal Lab Results - Last 24 Hours (Table) 08/18/20 Range/Units 11:36 Carbon Dioxide 32 H (22-30) mmol/L BUN 40 H (7-17) mg/dL Creatinine 1.35 H (0.52-1.04) mg/dL AST 68 H (14-36) U/L ALT 69 H (4-34) U/L Creatine Kinase 556 H (30-135) U/L Thrombosis Risk Factor Assmnt - Choose All That Apply Any of the Below Risk Factors Present?: No Other Risk Factors: Yes Each Risk Factor Represents 2 Points: Patient confined to bed Each Risk Factor Represents 3 Points: Age 75 years or older Thrombosis Risk Factor Assessment Total Risk Factor Score: 5 Thrombosis Risk Factor Assessment Level: High Risk
[2020-08-18] MEDS ORDERED: cloNIDine 0.1 MG/24HR PATCH TRANSDERM SCH (22:30)
[2020-08-18 23:05] LABS: Glucose,Whole Blood 102 mg/dL (75-99)
[2020-08-19] MEDS: amLODIPine 5 MG TAB PO SCH ×2 (01:59→19:40)
[2020-08-19] MEDS: busPIRone HCl 5 MG TAB PO SCH ×3 (01:59→19:35)
[2020-08-19] MEDS: MEMANTINE 10 MG TAB PO SCH ×3 (02:00→19:40)
[2020-08-19] MEDS: LOSARTAN 50 MG TAB PO SCH ×2 (02:00→19:35)
[2020-08-19] MEDS: MELATONIN 3 MG TABLET PO SCH ×2 (02:00→19:35)
[2020-08-19 02:41] LABS: Glucose,Whole Blood 80 mg/dL (75-99)
[2020-08-19] MEDS: ENOXAPARIN 40 MG/0.4 ML SYRINGE SQ SCH ×2 (03:56→07:20)
[2020-08-19] MEDS ORDERED: LEVOTHYROXINE 112 MCG TAB PO SCH (06:00)
[2020-08-19] MEDS: LEVOTHYROXINE IVP 100 MCG/5 ML VIAL IV SCH (07:20)
[2020-08-19 07:32] LABS: Glucose,Whole Blood 79 mg/dL (75-99)
[2020-08-19] MEDS ORDERED: levETIRAcetam IV 500 MG in SODIUM CHLORIDE 0.9% 100 ML IVPB SCH (09:00)
[2020-08-19 09:39] LABS: African American GFR (CKD) 55 (>60 ml/min/1.73 sqM); Anion Gap 2 mmol/L; Blood Urea Nitrogen 27 mg/dL (7-17); Calcium 8.7 mg/dL (8.4-10.2); Carbon Dioxide 27 mmol/L (22-30); Chloride 112 mmol/L (98-107); Glucose 87 mg/dL (74-99); Non-African American GFR(CKD) 48 (>60 ml/min/1.73 sqM); Potassium 4.6 mmol/L (3.5-5.1); Sodium 141 mmol/L (137-145)
[2020-08-19] MEDS: ASPIRIN 81 MG PO SCH (10:29)
[2020-08-19] MEDS: CALCIUM CARB-VIT D 500 MG-5 MCG TAB PO SCH (10:30)
[2020-08-19] MEDS: CYANOCOBALAMIN 500 MCG TAB PO SCH (10:30)
[2020-08-19] MEDS: CHOLECALCIFEROL 1,000 UNIT TAB PO SCH (10:30)
[2020-08-19] MEDS: DOCUSATE 100 MG CAP PO SCH (10:31)
--- NOTE | 2020-08-19 11:48 | EEG ---
ELECTROENCEPHALOGRAM REPORT DATE OF SERVICE: 08/19/2020 PREAMBLE: This is an 80-year-old female who had a new onset seizure that lasted about 3 minutes. Initially patient was difficult to arouse, however, eventually came around and was altered to self. The patient has history of cognitive impairment. EEG FINDINGS: This is a 21 channel routine EEG recording in a patient utilizing 10-20 international system with referential and bipolar montages. The background consists of poorly developed and regulated diffuse 2-3 hertz delta mixed with some theta activity seen in bihemispheric region. There is frequent left or right or bisynchronous sharp waves seen frequently, sometimes at less than 1 hertz predominantly involving bilateral frontal parietal region. No convulsive activity was noted on the video. Different stages of sleep were not seen. Photic driving response was not seen. IMPRESSION: This is an abnormal EEG due to: 1. Background slowing of moderate to severe degree. This is suggestive of generalized cerebral dysfunction as can be seen with toxic metabolic encephalopathy or due to diffuse structural brain abnormality. 2. Very frequent sharp waves seen in left and right frontal parietal region, independent and bisynchronous. This is suggestive of underlying cortical irritability and tendency for seizures. Followup EEG recommended, especially if clinically indicated. MMODL / IJN: [id number] / [facility]
[2020-08-19] MEDS ORDERED: LORazepam 2 MG/ML INJ IV PRN (11:52)
[2020-08-19] MEDS ORDERED: levETIRAcetam IV 500 MG in SODIUM CHLORIDE 0.9% 100 ML IVPB ONE (12:15)
[2020-08-19 12:47] LABS: Glucose,Whole Blood 90 mg/dL (75-99)
--- NOTE | 2020-08-19 13:10 | P.CNNES ---
History of Present Illness Consult date: 08/19/20 Requesting physician: Silver Snowden Reason for Consult: New onset seizure History of Present Illness: Patient is a 80-year-old female came to the hospital yesterday at 11:04 AM by ambulance for new onset seizure. Patient has history of hypertension, dementia, who was started on trazodone the day prior to admission, and had a seizure consisting of tonic-clonic activity lasting for 2-3 minutes. Uncertain if there was any head trauma involved. Patient was brought in by EMS with a cervical collar on. No recent fever, chills nausea vomiting sweats diarrhea. Per EMS flow sheet when they arrived, the patient was difficult to arouse, then alert to self. Patient was walking through the house when she fell and began having a full-body seizure lasting about 3 minutes. Staff stated patient is not taking blood thinners. Patient was alert to self and would follow commands however was nonverbal. Patient's mentation improved during transport to the hospital. Patient's blood pressure was 153/77, pulse rate 87 respirations 16 and saturation 96%. Patient's vitals on arrival blood pressure is 138/81, pulse rate 76, temperature 97.6. Computed tomography scan of the head showed no acute process. CT of the cervical spine was negative for any fracture or dislocation. EKG shows sinus rhythm with first-degree AV block. Chest x-ray shows bilateral lower lobe infiltrate. Resolution of right upper lobe infiltrate. Patient's blood test shows normal CBC, electrolytes, BUN 40, creatinine 1.35. AST 68, ALT 69, t roponin negative. CPK 556. Patient was loaded on Keppra 1000 mg yesterday in the ER and started on Keppra 500 mg twice a day. Per nurse report, who contacted patient's caregiver at the residential, informed that patient has significant dementia, alert and oriented 0. Per nursing staff at the facility, she is independent, walks, eats by herself. Doesn't use any assistive device. However her conversation is confused at baseline, she can answer yes no questions, but sometimes incorrect. She has a guardian. Patient takes amlodipine 5 mg, BuSpar 5 mg twice a day, trazodone 50 mg at [place], irbesartan, Namenda 10 mg twice a day, levothyroxine, aspirin 81 mg, Seroquel 25 mg, lorazepam 0.5 mg twice a day when necessary, and melatonin 3 mg. Review of Systems ROS unobtainable: due to mental status Past Medical History Past Medical History: Dementia, Hypertension Additional Past Medical History / Comment(s): hypothyroid, CKD stage III, vitamin D defiency, SSS with pacer, occasional incontinence History of Any Multi-Drug Resistant Organisms: Unobtainable Past Surgical History: Pacemaker Past Anesthesia/Blood Transfusion Reactions: Unable to Obtain Type of Cardiac Device: Permanent Pacemaker Device Placement Date:: Public legal guardian believes pacer was placed sometime in 2019. Past Psychological History: Unable to Obtain Additional Psychological History / Comment(s): Pt resides at [facility]. She is normally very confused and pleasant. She ambulates independently. She feeds herself. She needs prompting to urinate and have bowel movements. Smoking Status: Unknown if ever smoked Past Alcohol Use History: Unable to Obtain Past Drug Use History: Unable to Obtain - Past Family History Father Family Medical History: Unable to Obtain Mother Family Medical History: Unable to Obtain Medications and Allergies Home Medications Medication Instructions Recorded Confirmed Type Aspirin EC [Ecotrin Low Dose] 81 mg PO DAILY@79908/17/19 08/18/20 History Irbesartan [Avapro] 150 mg PO HS@199908/17/19 08/18/20 History Levothyroxine Sodium 112 mcg PO SUMOTUWETHSA@59908/17/19 08/18/20 History Levothyroxine Sodium [Synthroid] 56 mcg PO FR@59908/17/19 08/18/20 History Memantine [Namenda] 10 mg PO BID@08/17/19 08/18/20 History Oyster Shell 500mg + Vit D3 400iu 1 tab PO DAILY@79908/17/19 08/18/20 History Cholecalciferol [Vitamin D3 (25 1,000 unit PO DAILY@79908/18/20 08/18/20 History Mcg = 1000 Iu)] Cyanocobalamin (Vitamin B-12) 1,000 mcg PO DAILY@79908/18/20 08/18/20 History [Vitamin B-12] Docusate [Colace] 100 mg PO DAILY@79908/18/20 08/18/20 History LORazepam [Ativan] 0.5 mg PO BID PRN 08/18/20 08/18/20 History Melatonin 6 mg PO HS@199908/18/20 08/18/20 History QUEtiapine [SEROquel] 25 mg PO DAILY@1200 08/18/20 08/18/20 History amLODIPine [Norvasc] 5 mg PO HS@199908/18/20 08/18/20 History busPIRone HCl [Buspar] 5 mg PO BID@0800,199908/18/20 08/18/20 History traZODone HCL [Desyrel] 50 mg PO HS@199908/18/20 08/18/20 History Allergies Allergy/AdvReac Type Severity Reaction Status Date / Time penicillin V Allergy Unknown Verified 08/18/20 11:30 Physical Examination - Vital Signs Vital Signs: Vital Signs Temp Pulse Pulse Resp BP BP Pulse Ox 08/19/20 02:00 97.8 F 16 132/72 08/19/20 00:11 97.8 F 08/18/20 23:45 93.6 F L 93 L 08/18/20 23:17 92.6 F L 18 143/84 93 L 08/18/20 18:29 98.0 F 72 18 138/71 100 08/18/20 17:50 97.7 F 78 16 150/79 94 L 08/18/20 17:20 18 08/18/20 17:07 97.9 F 84 16 117/82 95 08/18/20 16:32 97.9 F 62 16 76/45 99 08/18/20 16:14 97.9 F 76 16 87/56 99 08/18/20 16:03 97.9 F 67 16 76/42 95 08/18/20 15:36 97.9 F 72 18 92/63 99 08/18/20 14:40 97.9 F 79 16 144/72 98 08/18/20 13:57 97.8 F 74 16 144/72 95 08/18/20 11:37 97.6 F 76 16 138/81 100 08/18/20 11:12 97.6 F 79 16 99 On examination patient is an elderly female, who is laying in the bed. She is keeping her eyes closed. Patient states "yes", but does not answer to any questions. She is sometimes lip smacking. But no other convulsive activity noted. Patient did say "Lupe" when I was calling her name. Possible echolalia. However she did not see any other word. Her pupils are round and reacting. Some roving eye movements. Face is symmetric. Visual lucas cannot be tested. On muscle strength testing. Tone is equal bilaterally. Patient would not squeeze or follow directions. Patient however yelled equally on na ilbed pressure in either hand. In the lower extremity, she did withdraw her feet and mood are little. Reflexes are 1 in the upper limbs, 2 at the knees 1 ankles and plantars are upgoing bilaterally. Cerebellar functions cannot be tested. Gait cannot be tested. Sensations as above. On general examination there is no carotid bruit or murmur, peripheral pulses are present. Abdomen soft nontender. No rash. Results - Laboratory Findings CBC and BMP: 08/18/20 11:36 08/19/20 09:09 Abnormal Lab Findings: Abnormal Labs 08/18/20 08/18/20 08/19/20 11:36 22:52 09:09 Chloride 112 H Carbon Dioxide 32 H BUN 40 H 27 H Creatinine 1.35 H 1.08 H POC Glucose (mg/dL) 102 H AST 68 H ALT 69 H Creatine Kinase 556 H Assessment and Plan Assessment: * New onset seizure. Exact cause uncertain. * Moderate to severe dementia. Patient is still self ambulatory, but is confused at baseline. Plan: * Patient underwent EEG today. It revealed background slowing of moderate to severe degree. This is suggestive of generalized cerebral dysfunction as can be seen with toxic metabolic encephalopathy related to diffuse structural brain abnormality. Very frequent sharp waves were seen in the left and right frontal parietal region, independent and bisynchronous. This is suggestive of underlying cortical irritability and tendency for seizures. Follow-up EEG recommended, especially if clinically indicated. * As the patient's EEG shows significant epileptiform activity. We will further increase Keppra to 1000 mg twice a day. * Repeat EEG in a.m. * MRI of the brain with and without contrast for new onset seizures. * Consider lumbar puncture if mentation does not improve. * Discussed with Dr. Hough in detail.
[2020-08-19] MEDS: QUEtiapine 25 MG TAB PO SCH (14:12)
--- NOTE | 2020-08-19 16:18 | P.PN ---
Subjective Progress Note Date: 08/19/20 History of presenting complaint: This is a 80-year-old patient with the resident of [facility]. Being followed by visiting physicians Dr. Barker. Chronic stable medical conditions include advanced cognitive impairment, height essential hypertension, hypothyroid. As per the EMS report patient was walking through the house when she fell and began having a full-body seizure that lasted about 3 minutes. Initially patient was difficult to arouse then became alert to self. director of in service education did show sinus rhythm. In the ER the patient had a second episode. And was given IV Keppra by the ER physician. Neurology was consulted. EMS at placed in a c-collar. When I came to see the patient this evening patient still in a post ictal state. Unable to open any further history. No trazodone was started the day before. 08/19/2020 Patient is seen in follow-up today currently nonverbal and per nursing staff this is done her baseline. Patient did say 1 word today "hello" to the nurse t his morning. Is being seen and evaluated by neurology and underwent EEG was abnormal due to background slowing of moderate to severe degree suggestive general cerebral dysfunction that can be seen in toxic metabolic encephalopathy or diffuse structural brain abnormality and per neurology will be repeating EEG tomorrow. No further seizure-like activity noted. Patient was started on Keppra and dose was increased by neurology. Discussed with neurology and will be obtaining an MRI of the brain. Patient does have history of advanced dementia. She is creatinine improved at 1.08, sodium is 141, potassium is 4.6. Patient does not have a white count it is currently 8.1 and patient has been afe brile showing no signs of an acute infection. Will await MRI and continue to follow with neurology. Review of systems: Unable to obtain given patient's confusional state All medications have been reviewed. Objective - Vital Signs Vital signs: Vital Signs Temp 98.7 F 08/19/20 08:00 Pulse 75 08/19/20 08:00 Resp 17 08/19/20 08:00 BP 139/69 08/19/20 08:00 Pulse Ox 93 L 08/19/20 08:00 Intake & Output 08/18/20 08/19/20 08/19/20 18:59 06:59 18:59 Weight 79.379 kg Other: Voiding Method Diaper Incontinent - Exam Gen: This is a 80-year-old female, nonverbal, well-developed, well-nourished HEENT: Head is atraumatic, normocephalic. Pupils equal, round. Sclerae is anicteric. NECK: Supple. No JVD. No lymphadenopathy. No thyromegaly. LUNGS: Clear to auscultation. No wheezes or rhonchi. No intercostal retractions. HEART: Regular rate and rhythm. No murmur. ABDOMEN: Soft. Bowel sounds are present. No masses. No tenderness. EXTREMITIES: No pedal edema. No calf tenderness. NEUROLOGICAL: Patient is asleep although arousable, alert to self on occasion with history of advanced dementia, diffusely weak - Labs CBC & Chem 7: 08/18/20 11:36 08/19/20 09:09 Labs: Abnormal Lab Results - Last 24 Hours (Table) 08/18/20 08/18/20 08/19/20 Range/Units 11:36 22:52 09:09 Chloride 112 H (98-107) mmol/L Carbon Dioxide 32 H (22-30) mmol/L BUN 40 H 27 H (7-17) mg/dL Creatinine 1.35 H 1.08 H (0.52-1.04) mg/dL POC Glucose (mg/dL) 102 H (75-99) mg/dL AST 68 H (14-36) U/L ALT 69 H (4-34) U/L Creatine Kinase 556 H (30-135) U/L Assessment and Plan Assessment: -Witnessed tonic-clonic seizures 2; 1 at the intermediate, and other 1 in the ER. 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 Patient is on IV Keppra and will continue at this time. Neurology following the patient and awaiting MRI of the brain to determine if a possible lumbar puncture is necessary. Patient does not have a white count and has been afebrile. Will repeat a.m. labs and attempt to get a urinalysis. Further recommendations to follow.
[2020-08-19 17:10] LABS: Glucose,Whole Blood 99 mg/dL (75-99)
[2020-08-19 17:48] LABS: Basophils % (A) 1 %; Eosinophils # (A) 0.1 k/uL (0-0.7); Eosinophils % (A) 1 %; HCT 35.8 % (34.0-46.0); HGB 12.1 gm/dL (11.4-16.0); Lymphocytes # (A) 1.3 k/uL (1.0-4.8); Lymphocytes % (A) 20 %; MCH 30.3 pg (25.0-35.0); MCHC 33.9 g/dL (31.0-37.0); MCV 89.3 fL (80.0-100.0); Mean Platelet Volume 7.4; Monocytes # (A) 0.4 k/uL (0-1.0); Monocytes % (A) 6 %; Neutrophils # (A) 4.6 k/uL (1.3-7.7); Neutrophils % (A) 71 %; Platelet Count 155 k/uL (150-450); RDW 14.2 % (11.5-15.5); WBC 6.4 k/uL (3.8-10.6)
[2020-08-19 17:55] LABS: Potassium 4.4 mmol/L (3.5-5.1)
[2020-08-19 17:56] LABS: African American GFR (CKD) 52 (>60 ml/min/1.73 sqM); Anion Gap 2 mmol/L; Blood Urea Nitrogen 24 mg/dL (7-17); Calcium 8.6 mg/dL (8.4-10.2); Carbon Dioxide 26 mmol/L (22-30); Chloride 111 mmol/L (98-107); Glucose 100 mg/dL (74-99); Non-African American GFR(CKD) 46 (>60 ml/min/1.73 sqM); Sodium 139 mmol/L (137-145)
[2020-08-19] MEDS: levETIRAcetam IV 1,000 MG in SALINE 1 100ML.BAG IVPB SCH (19:35)
[2020-08-19] MEDS ORDERED: levETIRAcetam IV 1,000 MG in SODIUM CHLORIDE 0.9% 100 ML IVPB SCH (21:00)
[2020-08-19 22:37] LABS: Glucose,Whole Blood 92 mg/dL (75-99)
[2020-08-20 02:25] LABS: Glucose,Whole Blood 89 mg/dL (75-99)
[2020-08-20] MEDS: LEVOTHYROXINE 112 MCG TAB PO SCH (06:25)
[2020-08-20 07:40] LABS: Glucose,Whole Blood 99 mg/dL (75-99)
[2020-08-20] MEDS: DOCUSATE 100 MG CAP PO SCH (08:10)
[2020-08-20] MEDS: CHOLECALCIFEROL 1,000 UNIT TAB PO SCH (08:10)
[2020-08-20] MEDS: CYANOCOBALAMIN 500 MCG TAB PO SCH (08:10)
[2020-08-20] MEDS: ASPIRIN 81 MG PO SCH (08:10)
[2020-08-20] MEDS: busPIRone HCl 5 MG TAB PO SCH ×2 (08:10→20:22)
[2020-08-20] MEDS: MEMANTINE 10 MG TAB PO SCH ×2 (08:11→21:10)
[2020-08-20] MEDS: ENOXAPARIN 40 MG/0.4 ML SYRINGE SQ SCH (08:11)
[2020-08-20] MEDS: CALCIUM CARB-VIT D 500 MG-5 MCG TAB PO SCH (08:11)
[2020-08-20] MEDS: levETIRAcetam IV 1,000 MG in SALINE 1 100ML.BAG IVPB SCH ×2 (08:23→20:21)
[2020-08-20 12:31] LABS: Glucose,Whole Blood 139 mg/dL (75-99)
[2020-08-20] MEDS: QUEtiapine 25 MG TAB PO SCH (12:34)
[2020-08-20] MEDS: LEVOTHYROXINE IVP 100 MCG/5 ML VIAL IV SCH (14:02)
--- NOTE | 2020-08-20 14:34 | EEG ---
ELECTROENCEPHALOGRAM REPORT DATE OF SERVICE: 08/20/2020 REASON FOR EEG: New onset seizure. FINDINGS: This EEG being performed utilizing the international 10/20 placement system. The patient is reportedly awake at the onset of the recording. There is no discernible alpha background rhythm. This EEG is extremely difficult to interpret. The background rhythm does attenuate with eye opening. There is a tremendous amount of movement artifact throughout the recording. There does appear to be a 22 second run of left temporal sharp waves. Photic stimulation is performed and produces an inconsistent driving response. However, again, there is tremendous amount of movement artifact. Hyperventilation was not performed. IMPRESSION: Markedly difficult EEG interpretation secondary to tremendous movement artifact. There is potentially a 22 second run of left temporal sharp waves. However, again, it is difficult to be sure that this is actual epileptiform activity in light of the movement artifact. Clinical correlation is advised. LINA / JAIRO: [id number] / MTDD
--- NOTE | 2020-08-20 15:27 | P.PN ---
Subjective 80-year-old patient with the resident of [facility]. Being followed by visiting physicians Dr. Barker. Chronic stable medical conditions include advanced cognitive impairment, height essential hypertension, hypothyroid. As per the EMS report patient was walking through the house when she fell and began having a full-body seizure that lasted about 3 minutes. Initially patient was difficult to arouse then became alert to self. quality assurance monitor body did show sinus rhythm. In the ER the patient had a second episode. And was given IV Keppra by the ER physician. Neurology was consulted. EMS at placed in a c-collar. When I came to see the patient this evening patient still in a post ictal state. Unable to open any further history. No trazodone was started the day before. 08/19/2020 Patient is seen in follow-up today currently nonverbal and per nursing staff this is done her baseline. Patient did say 1 word today "hello" to the nurse this morning. Is being seen and evaluated by neurology and underwent EEG was abnormal due to background slowing of moderate to severe degree suggestive general cerebral dysfunction that can be seen in toxic metabolic encephalopathy or diffuse structural brain abnormality and per neurology will be repeating EEG tomorrow. No further seizure-like activity noted. Patient was started on Keppra and dose was increased by neurology. Discussed with neurology and will be obtaining an MRI of the brain. Patient does have history of advanced dementia. She is creatinine improved at 1.08, sodium is 141, potassium is 4.6. Patient does not have a white count it is currently 8.1 and patient has been afebrile showing no signs of an acute infection. Will await MRI and continue to follow with neurology. 08/20/2020 Patient can get an MRI as he has a pacemaker. Neurology will evaluate the patient today depending on that decision ration may need lumbar puncture. Patient is alert oriented 1. Unsure why patient is on IV levothyroxine that will be discontinued. Patient is alert oriented 1 as per the nursing staff but just received Seroquel because of which patient is sleeping. Creatinine fairly stable at 1.13 Review of systems: Unable to obtain due to her clinical condition. All inpatient medications were reviewed and appropriate changes in these medications as dictated in the interval history and assessment and plan. Objective - Vital Signs Vital signs: Vital Signs Temp 97.3 F L 08/20/20 14:00 Pulse 60 08/20/20 14:00 Resp 16 08/20/20 14:00 BP 132/71 08/20/20 14:00 Pulse Ox 93 L 08/20/20 14:00 Intake & Output 08/19/20 08/20/20 08/20/20 18:59 06:59 18:59 Intake Total 1999 125 Balance 1999 125 Intake: Intake, IV Titration 2000 Amount levETIRAcetam IV 1,000 mg 2000 In Saline 1 100ml.bag @ 400 mls/hr IVPB Q12HR [facility] Rx#:[id number] Oral 125 Other: Voiding Method Diaper Diaper Incontinent Incontinent # Voids 1 2 1 # Bowel Movements 1 - Exam PHYSICAL EXAMINATION: GENERAL: The patient is sleeping heard arouse HEENT: Pupils are round and equally reacting to light. EOMI. No scleral icterus. No conjunctival pallor. Normocephalic, atraumatic. No pharyngeal erythema. No thyromegaly. CARDIOVASCULAR: S1 and S2 present. No murmurs, rubs, or gallops. PULMONARY: Unable to assess ABDOMEN: Soft, nontender, nondistended, normoactive bowel sounds. No palpable organomegaly. MUSCULOSKELETAL: No joint swelling or deformity. EXTREMITIES: No cyanosis, clubbing, or pedal edema. NEUROLOGICAL: Unable to assess SKIN: No rashes. - Labs CBC & Chem 7: 08/19/20 16:54 08/19/20 16:54 Labs: Abnormal Lab Results - Last 24 Hours (Table) 08/19/20 08/20/20 Range/Units 16:54 12:29 Chloride 111 H (98-107) mmol/L BUN 24 H (7-17) mg/dL Creatinine 1.13 H (0.52-1.04) mg/dL Glucose 100 H (74-99) mg/dL POC Glucose (mg/dL) 139 H (75-99) mg/dL Assessment and Plan Plan: -Witnessed tonic-clonic seizures 2; 1 at the prison, and other 1 in the ER. 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 Patient is on IV Keppra and will continue at this time. Neurology following lumbar puncture as per neurology
[2020-08-20 16:40] LABS: Glucose,Whole Blood 109 mg/dL (75-99)
--- NOTE | 2020-08-20 17:14 | P.PN ---
Subjective Progress Note Date: 08/20/20 The patient is an 80-year-old female who is seen in neurologic follow- up on August 20, 2019 via teleneurology. The chart has been reviewed. Patient reportedly had 2 witnessed, new onset, tonic clonic seizures. In the emergency department she was loaded with IV Keppra. The first EEG revealed epileptiform activity and so the patient's maintenance dose of Keppra was increased to 1000 mg twice a day. Repeat EEG was done today. There was a tremendous amount of movement artifact. There is a questionable 22 second run of left temporal sharp waves. Per the patient's nurse, the patient was awake is morning. She was pleasant. She was talking to herself. She was fed breakfast and took her medications without difficulty. There have been no further seizures. The patient returned from EEG and was agitated. At noon, she received 25 mg of Seroquel. At the time of my evaluation at 3:05 PM, the patient is markedly obtunded. Objective - Vital Signs Vital signs: Vital Signs Temp 97.3 F L 08/20/20 14:00 Pulse 60 08/20/20 14:00 Resp 16 08/20/20 14:00 BP 132/71 08/20/20 14:00 Pulse Ox 93 L 08/20/20 14:00 Intake & Output 08/19/20 08/20/20 08/20/20 18:59 06:59 18:59 Intake Total 1999 125 Balance 1999 125 Intake: Intake, IV Titration 2000 Amount levETIRAcetam IV 1,000 mg 2000 In Saline 1 100ml.bag @ 400 mls/hr IVPB Q12HR [facility] Rx#:[id number] Oral 125 Other: Voiding Method Diaper Diaper Incontinent Incontinent # Voids 1 2 1 # Bowel Movements 1 - Exam Gen.: The patient is reclining in the bed. She is in no acute distress. HEENT: Head is atraumatic, normocephalic. Fundus not visualized. There is no scleral icterus. Mucous membranes are not visualized. Neurological examination Mental status: The patient is obtunded. She does not open her eyes to verbal or noxious stimulation. She does moan in response to sternal rub. She is nonverbal. Cranial nerves: Pupils are equal at 2 mm and reactive. The patient does blink when her eyelashes are touched. There is no obvious facial asymmetry. Motor: There is no purposeful movement. Sensation: The patient does withdraw lower extremities from noxious stimulation - Labs CBC & Chem 7: 08/19/20 16:54 08/19/20 16:54 Labs: Abnormal Lab Results - Last 24 Hours (Table) 08/19/20 08/20/20 Range/Units 16:54 12:29 Chloride 111 H (98-107) mmol/L BUN 24 H (7-17) mg/dL Creatinine 1.13 H (0.52-1.04) mg/dL Glucose 100 H (74-99) mg/dL POC Glucose (mg/dL) 139 H (75-99) mg/dL Assessment and Plan Assessment: 1. New onset seizure in an 80-year-old female with severe, advanced dementia- the patient received a dose of Seroquel 25 mg at noon, she remains markedly obtunded at the time of my evaluation today, at 3:05 PM 2. Repeat EEG nearly uninterpretable secondary to talking and movement artifact Plan: 1. Agree with changing Seroquel dosing to daily at bedtime when necessary 2. Continue Keppra 1000 mg twice daily 3. Will hold off on ordering lumbar puncture, until the patient can be reevaluated tomorrow 4. Patient is unable to have an MRI of her brain, secondary to pacemaker Time with Patient: Less than 30 (spent 20 minutes with patient via teleneurology)
[2020-08-20 18:10] LABS: Appearance,Urine Clear (Clear); Bilirubin,Urine Negative (Negative); Blood,Urine Negative (Negative); Color,Urine Light Yellow; Glucose,Urine (UA) Negative (Negative); Ketones,Urine Negative (Negative); Leukocyte Esterase,Urine Negative (Negative); Nitrite,Urine Negative (Negative); PH, Urine 6.5 (5.0-8.0); Protein,Urine Negative (Negative); Specific Gravity,Urine 1.011 (1.001-1.035); Urobilinogen,Urine <2.0 mg/dL (<2.0)
[2020-08-20] MEDS: MELATONIN 3 MG TABLET PO SCH (20:22)
[2020-08-20] MEDS: LOSARTAN 50 MG TAB PO SCH (20:22)
[2020-08-20 20:30] LABS: Glucose,Whole Blood 85 mg/dL (75-99)
[2020-08-20] MEDS ORDERED: QUEtiapine 25 MG TAB PO PRN (21:00)
[2020-08-20] MEDS: amLODIPine 5 MG TAB PO SCH (21:10)
[2020-08-21 02:17] LABS: Glucose,Whole Blood 92 mg/dL (75-99)
[2020-08-21] MEDS: LEVOTHYROXINE 112 MCG TAB PO SCH (05:55)
[2020-08-21 07:41] LABS: Glucose,Whole Blood 115 mg/dL (75-99)
[2020-08-21] MEDS: CHOLECALCIFEROL 1,000 UNIT TAB PO SCH (08:53)
[2020-08-21] MEDS: CALCIUM CARB-VIT D 500 MG-5 MCG TAB PO SCH (08:53)
[2020-08-21] MEDS: DOCUSATE 100 MG CAP PO SCH (08:53)
[2020-08-21] MEDS: CYANOCOBALAMIN 500 MCG TAB PO SCH (08:53)
[2020-08-21] MEDS: levETIRAcetam IV 1,000 MG in SALINE 1 100ML.BAG IVPB SCH ×2 (08:53→20:11)
[2020-08-21] MEDS: busPIRone HCl 5 MG TAB PO SCH ×2 (08:53→20:11)
[2020-08-21] MEDS: ASPIRIN 81 MG PO SCH (08:53)
[2020-08-21] MEDS: ENOXAPARIN 40 MG/0.4 ML SYRINGE SQ SCH (08:53)
[2020-08-21] MEDS: MEMANTINE 10 MG TAB PO SCH ×2 (08:53→20:11)
[2020-08-21 09:33] LABS: African American GFR (CKD) 60.8 (60.0-200.0); Anion Gap 5.9 mmol/L (4.00-12.00); Carbon Dioxide 28.1 mmol/L (21.6-31.8); Non-African American GFR(CKD) 52.4 (60.0-200.0); Potassium 3.7 mmol/L (3.5-5.5)
[2020-08-21 11:37] LABS: Glucose,Whole Blood 93 mg/dL (75-99)
--- NOTE | 2020-08-21 11:45 | P.PN ---
Subjective 80-year-old patient with the resident of [facility]. Being followed by visiting physicians Dr. Barker. Chronic stable medical conditions include advanced cognitive impairment, height essential hypertension, hypothyroid. As per the EMS report patient was walking through the house when she fell and began having a full-body seizure that lasted about 3 minutes. Initially patient was difficult to arouse then became alert to self. hypo splasher did show sinus rhythm. In the ER the patient had a second episode. And was given IV Keppra by the ER physician. Neurology was consulted. EMS at placed in a c-collar. When I came to see the patient this evening patient still in a post ictal state. Unable to open any further history. No trazodone was started the day before. 08/19/2020 Patient is seen in follow-up today currently nonverbal and per nursing staff this is done her baseline. Patient did say 1 word today "hello" to the nurse this morning. Is being seen and evaluated by neurology and underwent EEG was abnormal due to background slowing of moderate to severe degree suggestive general cerebral dysfunction that can be seen in toxic metabolic encephalopathy or diffuse structural brain abnormality and per neurology will be repeating EEG tomorrow. No further seizure-like activity noted. Patient was started on Keppra and dose was increased by neurology. Discussed with neurology and will be obtaining an MRI of the brain. Patient does have history of advanced dementia. She is creatinine improved at 1.08, sodium is 141, potassium is 4.6. Patient does not have a white count it is currently 8.1 and patient has been afebrile showing no signs of an acute infection. Will await MRI and continue to follow with neurology. 08/20/2020 Patient can get an MRI as he has a pacemaker. Neurology will evaluate the patient today depending on that decision ration may need lumbar puncture. Patient is alert oriented 1. Unsure why patient is on IV levothyroxine that will be discontinued. Patient is alert oriented 1 as per the nursing staff but just received Seroquel because of which patient is sleeping. Creatinine fairly stable at 1.13. 08/21/2020 Patient is doing better patient is still quite a bit confused oriented 1 which appears to be her baseline patient appears to have advanced dementia patient's age she is doing well. Much more awake. Patient was evaluated by neurology considering her overall clinical condition, advanced dementia and no clear evidence of any infection lumbar puncture is not being recommended at this time. Review of systems: Unable to obtain due to her clinical condition. All inpatient medications were reviewed and appropriate changes in these medications as dictated in the interval history and assessment and plan. Objective - Vital Signs Vital signs: Vital Signs Temp 97.3 F L 08/21/20 07:56 Pulse 60 08/21/20 07:56 Resp 18 08/21/20 07:56 BP 149/72 08/21/20 07:56 Pulse Ox 96 08/21/20 07:56 Intake & Output 08/20/20 08/21/20 08/21/20 18:59 06:59 18:59 Intake Total 125 130 720 Output Total 300 Balance -175 130 720 Intake: Intake, IV Titration 100 Amount levETIRAcetam IV 1,000 mg 100 In Saline 1 100ml.bag @ 400 mls/hr IVPB Q12HR [facility] Rx#:[id number] Oral 125 30 720 Output: Urine 300 Straight 300 Other: Voiding Method Diaper Bedside Commode Incontinent # Voids 5 2 - Exam PHYSICAL EXAMINATION: GENERAL: The patient is sleeping heard arouse HEENT: Pupils are round and equally reacting to light. EOMI. No scleral icterus. No conjunctival pallor. Normocephalic, atraumatic. No pharyngeal erythema. No thyromegaly. CARDIOVASCULAR: S1 and S2 present. No murmurs, rubs, or gallops. PULMONARY: Unable to assess ABDOMEN: Soft, nontender, nondistended, normoactive bowel sounds. No palpable organomegaly. MUSCULOSKELETAL: No joint swelling or deformity. EXTREMITIES: No cyanosis, clubbing, or pedal edema. NEUROLOGICAL: Unable to assess SKIN: No rashes. - Labs CBC & Chem 7: 08/19/20 16:54 08/21/20 06:06 Labs: Abnormal Lab Results - Last 24 Hours (Table) 08/20/20 08/20/20 08/21/20 Range/Units 12:29 16:39 06:06 Est GFR (CKD-EPI)NonAf 52.4 L (60.0-200.0) POC Glucose (mg/dL) 139 H 109 H (75-99) mg/dL 08/21/20 Range/Units 07:37 Est GFR (CKD-EPI)NonAf (60.0-200.0) POC Glucose (mg/dL) 115 H (75-99) mg/dL Assessment and Plan Plan: -Witnessed tonic-clonic seizures 2; 1 at the senior care, and other 1 in the ER. I would obtain MRI because of above-mentioned reasons patient had some spikes although difficult to exclude epileptiform activity -Advanced cognitive impairment probably from a vascular dementia. Patient to her mental status appears to be at her baseline. Regarding MRI of lumbar puncture please refer to the discussion in the interval history -Essential hypertension -Hypothyroid -Sick sinus syndrome with a pacemaker -Public legal guardian -DVT prophylaxis: Subcutaneous Lovenox -Full code Plan: Continue with current medications. Patient is on IV Keppra and will continue at this time. Neurology following lumbar puncture as per neurology
--- NOTE | 2020-08-21 15:43 | P.PN ---
Subjective Progress Note Date: 08/21/20 The patient is an 80-year-old female who is seen in neurologic follow- up on August 20, 2019 via teleneurology. The chart has been reviewed. Patient reportedly had 2 witnessed, new onset, tonic clonic seizures. In the emergency department she was loaded with IV Keppra. The first EEG revealed epileptiform activity and so the patient's maintenance dose of Keppra was increased to 1000 mg twice a day. Repeat EEG was done today. There was a tremendous amount of movement artifact. There is a questionable 22 second run of left temporal sharp waves. Per the patient's nurse, the patient was awake is morning. She was pleasant. She was talking to herself. She was fed breakfast and took her medications without difficulty. There have been no further seizures. The patient returned from EEG and was agitated. At noon, she received 25 mg of Seroquel. At the time of my evaluation at 3:05 PM, the patient is markedly obtunded. August 21, 2020, the patient is seen in neurologic follow-up via teleneurology. The patient is awake and alert today. She reports "I'm doing fine today, howev er I'm still confused". Per nursing, there has been no evidence of seizure activity. Objective - Vital Signs Vital signs: Vital Signs Temp 97.4 F L 08/21/20 14:00 Pulse 64 08/21/20 14:00 Resp 18 08/21/20 14:00 BP 128/70 08/21/20 14:00 Pulse Ox 96 08/21/20 14:00 Intake & Output 08/20/20 08/21/20 08/21/20 18:59 06:59 18:59 Intake Total 125 130 840 Output Total 300 Balance -175 130 840 Intake: Intake, IV Titration 100 Amount levETIRAcetam IV 1,000 mg 100 In Saline 1 100ml.bag @ 400 mls/hr IVPB Q12HR [facility] Rx#:[id number] Oral 125 30 840 Output: Urine 300 Straight 300 Other: Voiding Method Diaper Bedside Commode Incontinent # Voids 5 2 1 - Exam Gen.: The patient is reclining in the bed. She is well-nourished, well- developed and in no acute distress. HEENT: Head is atraumatic, normocephalic. Fundus not visualized. There is no scleral icterus. Neurological examination Mental status: The patient is able to state her name. She is not oriented to her date of , her current location or the current year. The patient's speech is clear. Patient is able to follow simple commands. Cranial nervse: Grossly intact Motor: Waitress strength is equal. The patient makes several attempts to get out of bed. She is repeatedly repositioning and folding a pillowcase. - Labs CBC & Chem 7: 08/19/20 16:54 08/21/20 06:06 Labs: Abnormal Lab Results - Last 24 Hours (Table) 08/20/20 08/21/20 08/21/20 Range/Units 16:39 06:06 07:37 Est GFR (CKD-EPI)NonAf 52.4 L (60.0-200.0) POC Glucose (mg/dL) 109 H 115 H (75-99) mg/dL Assessment and Plan Assessment: 1. New onset seizure in an 80-year-old female with severe, advanced dementia-likely at baseline 2. Repeat EEG nearly uninterpretable secondary to talking and movement artifact Plan: 1. Continue Keppra 1000 mg twice daily 2. I do not believe a lumbar puncture is indicated 3. The patient is neurologically stable for transfer back to her residence Time with Patient: Less than 30 (spent 20 minutes with patient via telemetry thien siu)
[2020-08-21 16:43] LABS: Glucose,Whole Blood 100 mg/dL (75-99)
[2020-08-21 20:11] LABS: Glucose,Whole Blood 150 mg/dL (75-99)
[2020-08-21] MEDS: amLODIPine 5 MG TAB PO SCH (20:11)
[2020-08-21] MEDS: MELATONIN 3 MG TABLET PO SCH (20:11)
[2020-08-21] MEDS: LOSARTAN 50 MG TAB PO SCH (20:11)
[2020-08-22 03:49] LABS: Glucose,Whole Blood 82 mg/dL (75-99)
[2020-08-22 04:18] VITALS: PULSE 60
[2020-08-22] MEDS: LEVOTHYROXINE 112 MCG TAB PO SCH (05:46)
[2020-08-22] MEDS: ASPIRIN 81 MG PO SCH (07:14)
[2020-08-22] MEDS: DOCUSATE 100 MG CAP PO SCH (07:14)
[2020-08-22] MEDS: CHOLECALCIFEROL 1,000 UNIT TAB PO SCH (07:14)
[2020-08-22] MEDS: CYANOCOBALAMIN 500 MCG TAB PO SCH (07:14)
[2020-08-22] MEDS: MEMANTINE 10 MG TAB PO SCH (07:15)
[2020-08-22] MEDS: CALCIUM CARB-VIT D 500 MG-5 MCG TAB PO SCH (07:15)
[2020-08-22] MEDS: busPIRone HCl 5 MG TAB PO SCH (07:18)
[2020-08-22 07:23] LABS: Glucose,Whole Blood 108 mg/dL (75-99)
[2020-08-22] MEDS: ENOXAPARIN 40 MG/0.4 ML SYRINGE SQ SCH (08:02)
[2020-08-22] MEDS: levETIRAcetam IV 1,000 MG in SALINE 1 100ML.BAG IVPB SCH (08:02)
[2020-08-22 11:41] LABS: Glucose,Whole Blood 79 mg/dL (75-99)
[2020-08-22 14:46] VITALS: BP 120/75; RESP 18; TEMP 97.4
--- NOTE | 2020-08-22 14:47 | P.DS ---
Providers Date of admission: 08/18/20 14:13 Attending physician: Rhett Ingram Consults: 08/18/20 14:14 Consult Physician Routine Consulting Provider: Liss Sawant Consult Reason/Comments: New-onset seizure Do you want consulting provider notified?: Yes Primary care physician: Juma Barker [facility] Course: 80-year-old patient with the resident of [facility]. Being followed by visiting physicians Dr. Barker. Chronic stable medical conditions include advanced cognitive impairment, height essential hypertension, hypothyroid. As per the EMS report patient was walking through the house when she fell and began having a full-body seizure that lasted about 3 minutes. Initially patient was difficult to arouse then became alert to self. respiratory supervisor did show sinus rhythm. In the ER the patient had a second episode. And was given IV Keppra by the ER physician. Neurology was consulted. EMS at placed in a c-collar. When I came to see the patient this evening patient still in a post ictal state. Unable to open any further history. No trazodone was started the day before. 08/19/2020 Patient is seen in follow-up today currently nonverbal and per nursing staff this is done her baseline. Patient did say 1 word today "hello" to the nurse this morning. Is being seen and evaluated by neurology and underwent EEG was abnormal due to background slowing of moderate to severe degree suggestive general cerebral dysfunction that can be seen in toxic metabolic encephalopathy or diffuse structural brain abnormality and per neurology will be repeating EEG tomorrow. No further seizure-like activity noted. Patient was started on Keppra and dose was increased by neurology. Discussed with neurology and will be obtaining an MRI of the brain. Patient does have history of advanced dementia. She is creatinine improved at 1.08, sodium is 141, potassium is 4.6. Patient does not have a white count it is currently 8.1 and patient has been afebrile showing no signs of an acute infection. Will await MRI and continue to follow with neurology. 08/20/2020 Patient can get an MRI as he has a pacemaker. Neurology will evaluate the patient today depending on that decision ration may need lumbar puncture. Patient is alert oriented 1. Unsure why patient is on IV levothyroxine that will be discontinued. Patient is alert oriented 1 as per the nursing staff but just received Seroquel because of which patient is sleeping. Creatinine fairly stable at 1.13. 08/21/2020 Patient is doing better patient is still quite a bit confused oriented 1 which appears to be her baseline patient appears to have advanced dementia patient's age she is doing well. Much more awake. Patient was evaluated by neurology considering her overall clinical condition, advanced dementia and no clear evidence of any infection lumbar puncture is not being recommended at this time. 08/22/2020 Patient has significant improvement in her mental status and is presently alert oriented 1-2. Patient does have advanced dementia doesn't follow commands very well. All the narcotics will be discontinued patient will be discharged to subacute rehabitation. Creatinine improved and presently 1.0. Neurology is not recommending any lumbar puncture or any other further workup patient will be started on Keppra and will be discharged on Keppra thousand milligrams twice a day. PHYSICAL EXAMINATION: GENERAL: The patient is alert and oriented x1-2, not in any acute distress. Well developed, well nourished. HEENT: Pupils are round and equally reacting to light. EOMI. No scleral icterus. No conjunctival pallor. Normocephalic, atraumatic. No pharyngeal erythema. No thyromegaly. CARDIOVASCULAR: S1 and S2 present. No murmurs, rubs, or gallops. PULMONARY: Able to clearly assess as patient doesn't actually follow commands ABDOMEN: Soft, nontender, nondistended, normoactive bowel sounds. No palpable organomegaly. MUSCULOSKELETAL: No joint swelling or deformity. EXTREMITIES: No cyanosis, clubbing, or pedal edema. NEUROLOGICAL: As not appear to have any focal deficits SKIN: No rashes. Assessment and Plan Plan: -Witnessed tonic-clonic seizures 2; 1 at the detention, and other 1 in the ER. I would obtain MRI because of above-mentioned reasons patient had some spikes although difficult to exclude epileptiform activity and patient was started on Keppra and will be discharged on Keppra. Unable to get an MRI because of pacemaker. As there is no evidence of fever and sepsis LP is not being obtained at this time. -Advanced cognitive impairment probably from a vascular dementia. Patient to her mental status appears to be at her baseline. -Essential hypertension -Hypothyroid -Sick sinus syndrome with a pacemaker -Public legal guardian Patient Condition at Discharge: Fair Plan - Discharge Summary New Discharge Prescriptions: New levETIRAcetam [Keppra] 1,000 mg PO Q12HR #10 tab QUEtiapine [SEROquel] 25 mg PO HS PRN tab PRN Reason: Agitation Continue Levothyroxine Sodium [Synthroid] 56 mcg PO FR@0600 Oyster Shell 500mg + Vit D3 400iu 1 tab PO DAILY@0800 Levothyroxine Sodium 112 mcg PO SUMOTUWETHSA@0600 Memantine [Namenda] 10 mg PO BID@799,1999 Irbesartan [Avapro] 150 mg PO HS@1999 Aspirin EC [Ecotrin Low Dose] 81 mg PO DAILY@0800 Cyanocobalamin (Vitamin B-12) [Vitamin B-12] 1,000 mcg PO DAILY@0800 busPIRone HCl [Buspar] 5 mg PO BID@799,1999 Cholecalciferol [Vitamin D3 (25 Mcg = 1000 Iu)] 1,000 unit PO DAILY@0800 Docusate [Colace] 100 mg PO DAILY@08 amLODIPine [Norvasc] 5 mg PO HS@1999 Melatonin 6 mg PO HS@1999 Discontinued traZODone HCL [Desyrel] 50 mg PO HS@1999 QUEtiapine [SEROquel] 25 mg PO DAILY@1200 LORazepam [Ativan] 0.5 mg PO BID PRN PRN Reason: Anxiety Discharge Medication List Aspirin EC [Ecotrin Low Dose] 81 mg PO DAILY@0808/17/19 [History] Irbesartan [Avapro] 150 mg PO HS@199908/17/19 [History] Levothyroxine Sodium 112 mcg PO SUMOTUWETHSA@0608/17/19 [History] Levothyroxine Sodium [Synthroid] 56 mcg PO FR@59908/17/19 [History] Memantine [Namenda] 10 mg PO BID@799,199908/17/19 [History] Oyster Shell 500mg + Vit D3 400iu 1 tab PO DAILY@0800 08/17/19 [History] Cholecalciferol [Vitamin D3 (25 Mcg = 1000 Iu)] 1,000 unit PO DAILY@0800 08/18/20 [History] Cyanocobalamin (Vitamin B-12) [Vitamin B-12] 1,000 mcg PO DAILY@0808/18/20 [History] Docusate [Colace] 100 mg PO DAILY@0800 08/18/20 [History] Melatonin 6 mg PO HS@199908/18/20 [History] amLODIPine [Norvasc] 5 mg PO HS@199908/18/20 [History] busPIRone HCl [Buspar] 5 mg PO BID@0800,199908/18/20 [History] QUEtiapine [SEROquel] 25 mg PO HS PRN tab 08/22/20 [Rx] levETIRAcetam [Keppra] 1,000 mg PO Q12HR #10 tab 08/22/20 [Rx] Follow up Appointment(s)/Referral(s): Juma Barker MD [Primary Care Provider] - 3 Days (office is closed due to birthday.patient will have to call office to let them know she is home.) Discharge Disposition: TRANSFER TO SNF/ECF
== END 2020-08-22 16:45 | disposition home health service (06) | DRG 101 ==
LOC: EC 11:04 → 5NMEDONC 14:13
PROVIDERS: ADMIT Hospitalist; ATTEND Hospitalist
DX: R56.9 Unspecified convulsions (principal); N18.30 Chronic kidney disease, stage 3 unspecified; I12.9 Hypertensive chronic kidney disease with stage 1 through stage 4 chronic kidney disease, or unspecified chronic kidney disease; F01.50 Vascular dementia, unspecified severity, without behavioral disturbance, psychotic disturbance, mood disturbance, and anxiety; I49.5 Sick sinus syndrome; I44.0 Atrioventricular block, first degree; G30.1 Alzheimer's disease with late onset; E86.0 Dehydration; E03.9 Hypothyroidism, unspecified; R32 Unspecified urinary incontinence; Z95.0 Presence of cardiac pacemaker; Z79.899 Other long term (current) drug therapy; Z79.890 Hormone replacement therapy; Z79.82 Long term (current) use of aspirin
CPT/HCPCS: 70450; 71045; 72125; 80048; 80053; 81003; 82550; 83735; 84443; 84484; 85025; 93005; 95816; 96361; 96365; 96366; 96375; 99285

== ENCOUNTER 2021-05-03 13:16 | Inpatient (IN) | payer MEDICARE ==
[2021-05-03] MEDS ORDERED: SODIUM CHLORIDE 0.9% 500 ML 500 ML IV STA (13:22)
[2021-05-03] MEDS ORDERED: SODIUM CHLORIDE 0.9% 1,000 ML IV STA (13:22)
[2021-05-03] MEDS ORDERED: PANTOPRAZOLE 40 MG/10 ML VIAL IVP STA (13:23)
--- NOTE | 2021-05-03 14:03 | ED ---
General Adult HPI - General Chief complaint: Syncope Stated complaint: AMS,Poss GI bleed Time Seen by Provider: 05/03/21 13:22 Source: EMS, RN notes reviewed, old records reviewed Mode of arrival: EMS Limitations: no limitations - History of Present Illness Initial comments: 81-year-old female presents with fall, loss of consciousness. The patient had been in the shower, she had collapsed and had an episode of either diarrhea or rectal bleeding. This history was obtained from the paramedics who did not witness any blood. She was unconscious at the facility where she resides. She has a history of dementia and is typically alert and oriented 2. She was confused. There was no reported seizure activity. No preceding complaints of chest pain or palpitation. During transport she was hypotensive in the 50 systolic with a reduced level of consciousness. She was maintaining her airway and breathing spontaneously. - Related Data Home Medications Medication Instructions Recorded Confirmed Aspirin EC [Ecotrin Low Dose] 81 mg PO DAILY@0800 08/17/19 05/03/21 Memantine [Namenda] 10 mg PO BID@0800,199908/17/19 05/03/21 Cholecalciferol [Vitamin D3 (25 1,000 unit PO Q48H 08/18/20 05/03/21 Mcg = 1000 Iu)] Cyanocobalamin (Vitamin B-12) 1,000 mcg PO DAILY@0800 08/18/20 05/03/21 [Vitamin B-12] Docusate [Colace] 100 mg PO BID@0800,199908/18/20 05/03/21 amLODIPine [Norvasc] 5 mg PO HS@199908/18/20 05/03/21 busPIRone HCl [Buspar] 5 mg PO BID@0800,199908/18/20 05/03/21 Irbesartan [Avapro] 75 mg PO HS@199905/03/21 05/03/21 Levothyroxine Sodium [Synthroid] 100 mcg PO DAILY@0800 05/03/21 05/03/21 Mirtazapine [Remeron] 15 mg PO HS@199905/03/21 05/03/21 QUEtiapine FUMARATE [SEROquel] 12.5 - 25 mg PO BID PRN 05/03/21 05/03/21 levETIRAcetam [Keppra] 500 mg PO BID@0800,199905/03/21 05/03/21 Allergies Allergy/AdvReac Type Severity Reaction Status Date / Time penicillin V Allergy Unknown Verified 05/03/21 13:44 Review of Systems ROS Statement: Those systems with pertinent positive or pertinent negative responses have been documented in the HPI. ROS Other: All systems not noted in ROS Statement are negative. Past Medical History Past Medical History: CVA/TIA, Dementia, Hypertension Additional Past Medical History / Comment(s): hypothyroid, CKD stage III, vitamin D defiency, SSS with pacer, occasional incontinence, TIA's. History of Any Multi-Drug Resistant Organisms: Unobtainable Past Surgical History: Pacemaker Past Anesthesia/Blood Transfusion Reactions: Unable to Obtain Type of Cardiac Device: Permanent Pacemaker Device Placement Date:: Patient's facility (who checked with Aunt) pacemaker 4 years ago (2016) Past Psychological History: Unable to Obtain Smoking Status: Unknown if ever smoked Past Alcohol Use History: Unable to Obtain Past Drug Use History: Unable to Obtain - Past Family History Father Family Medical History: Unable to Obtain Mother Family Medical History: Unable to Obtain General Exam Limitations: no limitations General appearance: in no apparent distress, lethargic Head exam: Present: atraumatic, normocephalic Eye exam: Present: normal appearance, PERRL ENT exam: Present: mucous membranes dry Neck exam: Present: normal inspection Respiratory exam: Present: decreased breath sounds. Absent: respiratory distress, wheezes Cardiovascular Exam: Present: regular rate, normal rhythm GI/Abdominal exam: Present: soft, distended. Absent: tenderness, guarding, rebound Extremities exam: Absent: normal capillary refill, pedal edema Neurological exam: Present: alert. Absent: oriented X3 Skin exam: Present: pallor, other (cool, Pale) Course Vital Signs 05/03/21 05/03/21 05/03/21 13:21 13:46 14:38 Temperature 95.3 F L Pulse Rate 78 86 96 Respiratory 20 22 22 Rate Blood Pressure 97/59 132/61 121/99 O2 Sat by Pulse 93 L 92 L 93 L Oximetry EKG Findings - EKG Comments: EKG Findings:: Normal sinus rhythm, rate of 77, MD interval 190, QRS duration 84, QTC 450, no ST segment elevation. Medical Decision Making - Medical Decision Making 81-year-old female presenting with likely syncopal episode, dehydration, and hypotension. Blood pressure improves with total of 2 L normal saline bolus. She is continued on IV hydration. She is in sinus rhythm. She has normal white blood cell count, stable hemoglobin. She has elected to let abnormalities with a sodium of 148. She has a lactic acid of 4.6 which will be repeated after hydration. She has an acute kidney injury with an elevated serum creatinine of 1.45. No signs of urinary tract infection. Head CT negative for intracranial hemorrhage or mass effect. Chest x-ray is concerning for developing pneumonia. She started on 2 g of Rocephin and blood cultures are obtained. I did discuss case with Dr. Constantino who will admit this patient. CODE STATUS was confirmed with paramedics, she is a full code. - Lab Data Result diagrams: 05/03/21 13:39 05/03/21 13:39 Lab Results 05/03/21 05/03/21 05/03/21 Range/Units 13:39 13:39 13:39 WBC 4.6 (3.8-10.6) k/uL RBC 4.06 (3.80-5.40) m/uL Hgb 13.1 (11.4-16.0) gm/dL Hct 37.6 (34.0-46.0) % MCV 92.7 (80.0-100.0) fL MCH 32.2 (25.0-35.0) pg MCHC 34.8 (31.0-37.0) g/dL RDW 16.0 H (11.5-15.5) % Plt Count 163 (150-450) k/uL MPV 7.7 Neutrophils % Not Reportable Neutrophils % (Manual) 89 % Band Neuts % (Manual) 5 % Lymphocytes % Not Reportable Lymphocytes % (Manual) 6 % Monocytes % Not Reportable Eosinophils % Not Reportable Basophils % Not Reportable Neutrophils # Not Reportable Neutrophils # (Manual) 4.30 (1.3-7.7) k/uL Lymphocytes # Not Reportable Lymphocytes # (Manual) 0.28 L (1.0-4.8) k/uL Monocytes # Not Reportable Eosinophils # Not Reportable Basophils # Not Reportable Nucleated RBCs 0 (0-0) /100 WBC Manual Slide Review Performed Poikilocytosis Slight Anisocytosis Slight PT 9.4 (9.0-12.0) sec INR 0.9 (<1.2) APTT 23.6 (22.0-30.0) sec Sodium (137-145) mmol/L Potassium (3.5-5.1) mmol/L Chloride (98-107) mmol/L Carbon Dioxide (22-30) mmol/L Anion Gap mmol/L BUN (7-17) mg/dL Creatinine (0.52-1.04) mg/dL Est GFR (CKD-EPI)AfAm (>60 ml/min/1.73 sqM) Est GFR (CKD-EPI)NonAf (>60 ml/min/1.73 sqM) Glucose (74-99) mg/dL Plasma Lactic Acid Grant (0.7-2.0) mmol/L Calcium (8.4-10.2) mg/dL Magnesium (1.6-2.3) mg/dL Total Bilirubin (0.2-1.3) mg/dL AST (14-36) U/L ALT (4-34) U/L Alkaline Phosphatase (38-126) U/L Troponin I (0.000-0.034) ng/mL Total Protein (6.3-8.2) g/dL Albumin (3.5-5.0) g/dL Urine Color Yellow Urine Appearance Clear (Clear) Urine pH 6.0 (5.0-8.0) Ur Specific Cornish 1.023 (1.001-1.035) Urine Protein Trace H (Negative) Urine Glucose (UA) Negative (Negative) Urine Ketones Negative (Negative) Urine Blood Small H (Negative) Urine Nitrite Negative (Negative) Urine Bilirubin Negative (Negative) Urine Urobilinogen 6.0 (<2.0) mg/dL Ur Leukocyte Esterase Negative (Negative) Urine RBC 1 (0-5) /hpf Urine WBC 1 (0-5) /hpf Ur Squamous Epith Cells <1 (0-4) /hpf Hyaline Casts 21 H (0-2) /lpf Urine Mucus Rare H (None) /hpf Stool Occult Blood (Negative) Blood Type Blood Type Recheck Bld Type Recheck Status Antibody Screen Spec Expiration Date 05/03/21 05/03/21 05/03/21 Range/Units 13:39 13:39 13:39 WBC (3.8-10.6) k/uL RBC (3.80-5.40) m/uL Hgb (11.4-16.0) gm/dL Hct (34.0-46.0) % MCV (80.0-100.0) fL MCH (25.0-35.0) pg MCHC (31.0-37.0) g/dL RDW (11.5-15.5) % Plt Count (150-450) k/uL MPV Neutrophils % Neutrophils % (Manual) % Band Neuts % (Manual) % Lymphocytes % Lymphocytes % (Manual) % Monocytes % Eosinophils % Basophils % Neutrophils # Neutrophils # (Manual) (1.3-7.7) k/uL Lymphocytes # Lymphocytes # (Manual) (1.0-4.8) k/uL Monocytes # Eosinophils # Basophils # Nucleated RBCs (0-0) /100 WBC Manual Slide Review Poikilocytosis Anisocytosis PT (9.0-12.0) sec INR (<1.2) APTT (22.0-30.0) sec Sodium 148 H (137-145) mmol/L Potassium 4.5 (3.5-5.1) mmol/L Chloride 110 H (98-107) mmol/L Carbon Dioxide 26 (22-30) mmol/L Anion Gap 12 mmol/L BUN 38 H (7-17) mg/dL Creatinine 1.45 H (0.52-1.04) mg/dL Est GFR (CKD-EPI)AfAm 38 (>60 ml/min/1.73 sqM) Est GFR (CKD-EPI)NonAf 33 (>60 ml/min/1.73 sqM) Glucose 155 H (74-99) mg/dL Plasma Lactic Acid Grant 4.6 H* (0.7-2.0) mmol/L Calcium 9.6 (8.4-10.2) mg/dL Magnesium 1.9 (1.6-2.3) mg/dL Total Bilirubin 0.9 (0.2-1.3) mg/dL AST 54 H (14-36) U/L ALT 38 H (4-34) U/L Alkaline Phosphatase 94 (38-126) U/L Troponin I <0.012 (0.000-0.034) ng/mL Total Protein 6.3 (6.3-8.2) g/dL Albumin 3.2 L (3.5-5.0) g/dL Urine Color Urine Appearance (Clear) Urine pH (5.0-8.0) Ur Specific Cornish (1.001-1.035) Urine Protein (Negative) Urine Glucose (UA) (Negative) Urine Ketones (Negative) Urine Blood (Negative) Urine Nitrite (Negative) Urine Bilirubin (Negative) Urine Urobilinogen (<2.0) mg/dL Ur Leukocyte Esterase (Negative) Urine RBC (0-5) /hpf Urine WBC (0-5) /hpf Ur Squamous Epith Cells (0-4) /hpf Hyaline Casts (0-2) /lpf Urine Mucus (None) /hpf Stool Occult Blood (Negative) Blood Type Blood Type Recheck Bld Type Recheck Status Antibody Screen Spec Expiration Date 05/03/21 05/03/21 Range/Units 13:39 13:39 WBC (3.8-10.6) k/uL RBC (3.80-5.40) m/uL Hgb (11.4-16.0) gm/dL Hct (34.0-46.0) % MCV (80.0-100.0) fL MCH (25.0-35.0) pg MCHC (31.0-37.0) g/dL RDW (11.5-15.5) % Plt Count (150-450) k/uL MPV Neutrophils % Neutrophils % (Manual) % Band Neuts % (Manual) % Lymphocytes % Lymphocytes % (Manual) % Monocytes % Eosinophils % Basophils % Neutrophils # Neutrophils # (Manual) (1.3-7.7) k/uL Lymphocytes # Lymphocytes # (Manual) (1.0-4.8) k/uL Monocytes # Eosinophils # Basophils # Nucleated RBCs (0-0) /100 WBC Manual Slide Review Poikilocytosis Anisocytosis PT (9.0-12.0) sec INR (<1.2) APTT (22.0-30.0) sec Sodium (137-145) mmol/L Potassium (3.5-5.1) mmol/L Chloride (98-107) mmol/L Carbon Dioxide (22-30) mmol/L Anion Gap mmol/L BUN (7-17) mg/dL Creatinine (0.52-1.04) mg/dL Est GFR (CKD-EPI)AfAm (>60 ml/min/1.73 sqM) Est GFR (CKD-EPI)NonAf (>60 ml/min/1.73 sqM) Glucose (74-99) mg/dL Plasma Lactic Acid Grant (0.7-2.0) mmol/L Calcium (8.4-10.2) mg/dL Magnesium (1.6-2.3) mg/dL Total Bilirubin (0.2-1.3) mg/dL AST (14-36) U/L ALT (4-34) U/L Alkaline Phosphatase (38-126) U/L Troponin I (0.000-0.034) ng/mL Total Protein (6.3-8.2) g/dL Albumin (3.5-5.0) g/dL Urine Color Urine Appearance (Clear) Urine pH (5.0-8.0) Ur Specific Cornish (1.001-1.035) Urine Protein (Negative) Urine Glucose (UA) (Negative) Urine Ketones (Negative) Urine Blood (Negative) Urine Nitrite (Negative) Urine Bilirubin (Negative) Urine Urobilinogen (<2.0) mg/dL Ur Leukocyte Esterase (Negative) Urine RBC (0-5) /hpf Urine WBC (0-5) /hpf Ur Squamous Epith Cells (0-4) /hpf Hyaline Casts (0-2) /lpf Urine Mucus (None) /hpf Stool Occult Blood Positive H (Negative) Blood Type AB Positive Blood Type Recheck No Previous Record Bld Type Recheck Status CABO Indicated Antibody Screen NEGATIVE Spec Expiration Date 05/06/20212338 Critical Care Time Critical Care Time: Yes Total Critical Care Time: 35 Disposition Clinical Impression: Community acquired pneumonia, Renal insufficiency, Dehydration, Syncope and collapse, KETURAH (acute kidney injury) Disposition: ADMITTED IP TO THIS [facility] Condition: Stable Is patient prescribed a controlled substance at d/c from ED?: No Referrals: William Baires MD [Primary Care Provider] - 1-2 days Decision to Admit Reason: Admit from EC Decision Date: 05/03/21 Decision Time: 15:06
[2021-05-03 14:08] LABS: Anisocytosis Slight; HCT 37.6 % (34.0-46.0); HGB 13.1 gm/dL (11.4-16.0); MCH 32.2 pg (25.0-35.0); MCHC 34.8 g/dL (31.0-37.0); MCV 92.7 fL (80.0-100.0); Mean Platelet Volume 7.7; Platelet Count 163 k/uL (150-450); Poikilocytosis Slight; RBC 4.06 m/uL (3.80-5.40); WBC 4.6 k/uL (3.8-10.6)
[2021-05-03 14:20] LABS: Albumin 3.2 g/dL (3.5-5.0); Calcium 9.6 mg/dL (8.4-10.2); Magnesium 1.9 mg/dL (1.6-2.3); Potassium 4.5 mmol/L (3.5-5.1); Total Bilirubin 0.9 mg/dL (0.2-1.3); Total Protein 6.3 g/dL (6.3-8.2)
[2021-05-03 14:21] LABS: INR 0.9 (<1.2); Partial Thromboplastin Time 23.6 sec (22.0-30.0); Prothrombin Time 9.4 sec (9.0-12.0)
[2021-05-03 14:30] LABS: Appearance,Urine Clear (Clear); Bilirubin,Urine Negative (Negative); Blood,Urine Small (Negative); Color,Urine Yellow; Glucose,Urine (UA) Negative (Negative); Hyaline Casts,Urine 21 /lpf (0-2); Ketones,Urine Negative (Negative); Leukocyte Esterase,Urine Negative (Negative); Mucus,Urine Rare /hpf; Nitrite,Urine Negative (Negative); Protein,Urine Trace (Negative); RBC,Urine 1 /hpf (0-5); Specific Gravity,Urine 1.023 (1.001-1.035); Squamous Epithelial Cell,Urine <1 /hpf (0-4); WBC,Urine 1 /hpf (0-5)
--- NOTE | 2021-05-03 14:30 | CT ---
EXAMINATION TYPE: CT brain radha hdz DATE OF EXAM: 05/03/2021 COMPARISON: 08/18/2020 HISTORY: Trauma, AMS. Poor historian. Possible GI Bleed CT DLP: 1351.5 mGycm, Automated exposure control for dose reduction was used. CONTRAST: Patient injected with 0 mL of Isovue 300. CT of the brain is performed utilizing 3 mm thick sections through the posterior fossa and 3 mm thick sections through the remaining calvarium. Study is performed within 24 hours of arrival to the hospital. No abnormal hyperdensity is present to suggest an acute intracranial hemorrhage. No mass lesion is evident. No acute infarcts are evident. Periventricular white matter hypodensity is present, likely on the ba sis of chronic white matter changes. Ventricles and sulci are prominent for the patient age. Paranasal sinuses and mastoid air cells within the [id number] are clear. IMPRESSIONS: 1. Atrophy with periventricular white matter ischemic-type changes. 2. No acute intracranial process. CT cervical spine. COMPARISON: None CT of the cervical spine is performed in the axial plane at 2 mm thick sections. Reconstructed image s in the coronal, and sagittal plane are reviewed on the computer. No acute fractures are evident. Anterior fusion is present at C3-4 and C5-6. 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 Posterior-superior endplate spurring is present at C6. Vertebral body alignment is normal. Degenerative disc changes are present C6-C7. Endplate spurring is present at the superior aspect of C 7. Vertebral body heights are preserved. No spinal canal stenosis is evident. Some right apical scarring appears to be present. IMPRESSIONS: 1. Postsurgical changes. 2. Degenerative disc changes especially noted at C6-7.
[2021-05-03 14:47] LABS: Band Neutrophils % 5 %; Lymphocytes # (M) 0.28 k/uL (1.0-4.8); Neutrophils % (M) 89 %; Nucleated Red Blood Cells 0 /100 WBC (0-0); Total Cells Counted 100
[2021-05-03] MEDS ORDERED: SODIUM CHLORIDE 0.9% 500 ML 500 ML IV ONE (14:47)
[2021-05-03] MEDS ORDERED: cefTRIAXone IN SWFI 1,000 MG/10 ML SYRINGE IVP STA (14:47)
--- NOTE | 2021-05-03 14:58 | XR ---
EXAMINATION TYPE: XR chest 1V portable DATE OF EXAM: 05/03/2021 HISTORY: Shortness of breath. COMPARISON: 08/18/2020 TECHNIQUE: Single view of the chest is submitted. FINDINGS: Demonstrated are scattered senescent parenchymal change. Patchy perihilar infiltrates may reflect developing pneumonia. Correlate clinically. The heart is stable. Hilar and mediastinal structures are within normal limits. Degenerative changes are seen of the dorsal spine. IMPRESSION: 1. Patchy perihilar infiltrates may reflect developing pneumonia. Correlate clinically.
[2021-05-03] MEDS ORDERED: ACETAMINOPHEN TAB 325 MG TAB PO PRN (15:03)
[2021-05-03] MEDS ORDERED: NALOXONE 0.4 MG/ML 1 ML VIAL IV PRN (15:03)
[2021-05-03] MEDS ORDERED: QUEtiapine 25 MG TAB PO PRN (16:01)
--- NOTE | 2021-05-03 16:09 | P.HPIM ---
History of Present Illness This is a pleasant 81 years old female from [facility] with past medical history of CVA/TIA, Dementia, Hypertension, hypothyroid, CKD stage III, vitamin D defiency, SSS with pacer, occasional incontinence, TIA's. Patient was sent from her [facility] for hypotension and syncopal episode, patient was 97/59. Patient is poor historian, she does not follow command although she is awake. She Says Is Called. She Moves Both Upper Extremities Equally, Pupils Are Equally Reactive to Light. Both legs are flexed and patient presents extension. Abdomen looks soft. She is slightly tachypneic and she is on 4 L oxygen via nasal cannula. Patient could not provide more information She is hypertensive, Also she was hypothermic with 95.3. She is slightly tachypneic 20-22. She is saturating 94% on 4 L oxygen via nasal cannula. Labs show an unremarkable CBC, INR 0.9, sodium elevated 148, creatinine elevated at 1.45 Lactic acid elevated 4.6, liver enzymes mostly up at 54 AST and 38 ALT, bilirubin normal 0.9. Urinalysis is not suspicious of infection Occult blood in the stools positive EKG showing normal sinus rhythm at [address]-T changes and QTC is 450. Chest x-ray, patchy perihilar infiltrate and a pleasant developing pneumonia Review of Systems n/a patient is confused Past Medical History Past Medical History: CVA/TIA, Dementia, Hypertension Additional Past Medical History / Comment(s): hypothyroid, CKD stage III, vitamin D defiency, SSS with pacer, occasional incontinence, TIA's. History of Any Multi-Drug Resistant Organisms: Unobtainable Past Surgical History: Pacemaker Past Anesthesia/Blood Transfusion Reactions: Unable to Obtain Type of Cardiac Device: Permanent Pacemaker Device Placement Date:: Patient's facility (who checked with Aunt) pacemaker 4 years ago (2017) Past Psychological History: Unable to Obtain Smoking Status: Unknown if ever smoked Past Alcohol Use History: Unable to Obtain Past Drug Use History: Unable to Obtain - Past Family History Father Family Medical History: Unable to Obtain Mother Family Medical History: Unable to Obtain Medications and Allergies Home Medications Medication Instructions Recorded Confirmed Type Aspirin EC [Ecotrin Low Dose] 81 mg PO DAILY@0800 08/17/19 05/03/21 History Memantine [Namenda] 10 mg PO BID@0800,199908/17/19 05/03/21 History Cholecalciferol [Vitamin D3 (25 1,000 unit PO Q48H 08/18/20 05/03/21 History Mcg = 1000 Iu)] Cyanocobalamin (Vitamin B-12) 1,000 mcg PO DAILY@0800 08/18/20 05/03/21 History [Vitamin B-12] Docusate [Colace] 100 mg PO BID@08,199908/18/20 05/03/21 History amLODIPine [Norvasc] 5 mg PO HS@199908/18/20 05/03/21 History busPIRone HCl [Buspar] 5 mg PO BID@0800,199908/18/20 05/03/21 History Irbesartan [Avapro] 75 mg PO HS@199905/03/21 05/03/21 History Levothyroxine Sodium [Synthroid] 100 mcg PO DAILY@0800 05/03/21 05/03/21 History Mirtazapine [Remeron] 15 mg PO HS@199905/03/21 05/03/21 History QUEtiapine FUMARATE [SEROquel] 12.5 - 25 mg PO BID PRN 05/03/21 05/03/21 History levETIRAcetam [Keppra] 500 mg PO BID@08,199905/03/21 05/03/21 History Allergies Allergy/AdvReac Type Severity Reaction Status Date / Time penicillin V Allergy Unknown Verified 05/03/21 13:44 Physical Exam Vitals: Vital Signs Temp Pulse Resp BP Pulse Ox 05/03/21 15:16 71 20 106/50 99 05/03/21 14:38 96 22 121/99 93 L 05/03/21 13:46 86 22 132/61 92 L 05/03/21 13:21 95.3 F L 78 20 97/59 93 L Intake and Output 05/03/21 05/03/21 05/03/21 06:59 14:59 22:59 Output Total 200 Balance -200 Output: Urine 200 Uretheral (Rosas) 200 Other: Weight 58.513 kg -GENERAL: The patient is alert , confused and disoriented 3, does not follow commands , not in any acute distress. Well developed, well nourished. HEENT: Pupils are round and equally reacting to light. EOMI. No scleral icterus. No conjunctival pallor. Normocephalic, atraumatic. No pharyngeal erythema. No thyromegaly. CARDIOVASCULAR: S1 and S2 present. No murmurs, rubs, or gallops. -PULMONARY: Chest is clear to auscultation, no wheezing . Bilateral rotation ABDOMEN: Soft, nontender, nondistended, normoactive bowel sounds. No palpable organomegaly. MUSCULOSKELETAL: No joint swelling or deformity. EXTREMITIES: No cyanosis, clubbing, or pedal edema. NEUROLOGICAL: Gross neurological examination did not reveal any focal deficits. SKIN: No rashes. No petechiae Results CBC & Chem 7: 05/03/21 13:39 05/03/21 13:39 Labs: Abnormal Lab Results - Last 24 Hours (Table) 05/03/21 05/03/21 05/03/21 Range/Units 13:39 13:39 13:39 RDW 16.0 H (11.5-15.5) % Lymphocytes # (Manual) 0.28 L (1.0-4.8) k/uL Sodium 148 H (137-145) mmol/L Chloride 110 H (98-107) mmol/L BUN 38 H (7-17) mg/dL Creatinine 1.45 H (0.52-1.04) mg/dL Glucose 155 H (74-99) mg/dL Plasma Lactic Acid Grant (0.7-2.0) mmol/L AST 54 H (14-36) U/L ALT 38 H (4-34) U/L Albumin 3.2 L (3.5-5.0) g/dL Urine Protein Trace H (Negative) Urine Blood Small H (Negative) Hyaline Casts 21 H (0-2) /lpf Urine Mucus Rare H (None) /hpf Stool Occult Blood (Negative) 05/03/21 05/03/21 Range/Units 13:39 13:39 RDW (11.5-15.5) % Lymphocytes # (Manual) (1.0-4.8) k/uL Sodium (137-145) mmol/L Chloride (98-107) mmol/L BUN (7-17) mg/dL Creatinine (0.52-1.04) mg/dL Glucose (74-99) mg/dL Plasma Lactic Acid Grant 4.6 H* (0.7-2.0) mmol/L AST (14-36) U/L ALT (4-34) U/L Albumin (3.5-5.0) g/dL Urine Protein (Negative) Urine Blood (Negative) Hyaline Casts (0-2) /lpf Urine Mucus (None) /hpf Stool Occult Blood Positive H (Negative) Assessment and Plan Assessment: Acute bilateral pneumonia, rule out aspiration Syncopal episode most likely secondary to hypotension Acute kidney injury Metabolic encephalopathy secondary to above Hypertension Dementia Hypothyroidism Chronic kidney disease stage III 30 Vitamin D deficiency History of sick sinus syndrome status post pacemaker History of CVA/TIA History of seizure Plan: This is a pleasant 81 years old female who presents with bilateral pneumonia Continue with Zosyn, sputum culture, blood culture Swallow evaluation Continue with normal saline. Total blood pressure medication Continue with levothyroxine and Keppra Labs and medication were reviewed.. Continue same treatment. Continue with symptomatic treatment. Resume home medication. Monitor lytes and vitals. DVT and GI prophylaxis. Further recommendations depends on the clinical course of the patient DVT prophylaxis: scd GI Prophylaxis: Ppi PT/OT: Pending Prognosis is guarded
[2021-05-03] MEDS: PIPERACILLIN-TAZOBACTAM 3.375 GM in SODIUM CHLORIDE 0.9% 100 ML IVPB SCH (16:24)
[2021-05-03] MEDS: SODIUM CHLORIDE 0.9% 1,000 ML IV SCH (17:44)
[2021-05-03] MEDS: levETIRAcetam 500 MG TAB PO SCH (23:12)
[2021-05-04] MEDS ORDERED: LORazepam 2 MG/ML INJ IV PRN (00:02)
[2021-05-04] MEDS: PIPERACILLIN-TAZOBACTAM 3.375 GM in SODIUM CHLORIDE 0.9% 100 ML IVPB SCH ×2 (01:24→08:15)
[2021-05-04] MEDS: SODIUM CHLORIDE 0.9% 1,000 ML IV SCH (01:24)
[2021-05-04] MEDS ORDERED: levETIRAcetam IV 500 MG in SODIUM CHLORIDE 0.9% 100 ML IVPB PRN (06:00)
[2021-05-04 07:57] LABS: ALT 28 U/L (4-34); AST 44 U/L (14-36); African American GFR (CKD) 56 (>60 ml/min/1.73 sqM); Albumin 2.5 g/dL (3.5-5.0); Alkaline Phosphatase 61 U/L (38-126); Anion Gap 6 mmol/L; Blood Urea Nitrogen 35 mg/dL (7-17); Calcium 8.6 mg/dL (8.4-10.2); Carbon Dioxide 20 mmol/L (22-30); Chloride 120 mmol/L (98-107); Globulin 2.6 g/dL; Glucose 79 mg/dL (74-99); Magnesium 1.7 mg/dL (1.6-2.3); Non-African American GFR(CKD) 48 (>60 ml/min/1.73 sqM); Potassium 4.1 mmol/L (3.5-5.1); Sodium 146 mmol/L (137-145); Total Bilirubin 0.6 mg/dL (0.2-1.3); Total Protein 5.1 g/dL (6.3-8.2)
[2021-05-04] MEDS ORDERED: LEVOTHYROXINE 100 MCG TAB PO SCH (08:00)
[2021-05-04] MEDS ORDERED: ASPIRIN 81 MG PO SCH (08:00)
[2021-05-04] MEDS: levETIRAcetam 500 MG TAB PO SCH ×2 (08:17→21:05)
[2021-05-04] MEDS ORDERED: PANTOPRAZOLE 40 MG/10 ML VIAL IV SCH (09:00)
[2021-05-04 11:41] LABS: Basophils # (A) 0.05 X 10*3/uL (0.00-0.10); Basophils % (A) 0.7 %; Eosinophils # (A) 0.01 X 10*3/uL (0.04-0.35); Eosinophils % (A) 0.1 %; HCT 33.4 % (37.2-46.3); Lymphocytes # (A) 0.51 X 10*3/uL (0.90-5.00); Lymphocytes % (A) 6.8 %; MCH 30.3 pg (27.0-32.0); MCHC 32.9 g/dL (32.0-37.0); Mean Platelet Volume 10.4 fL (9.5-12.2); Monocytes # (A) 0.64 X 10*3/uL (0.20-1.00); Monocytes % (A) 8.5 %; Neutrophils # (A) 6.29 X 10*3/uL (1.80-7.70); Neutrophils % (A) 83.5 %; Platelet Count 132 X 10*3/uL (140-440); RBC 3.63 X 10*6/uL (4.10-5.20); RDW 16.1 % (11.5-14.5); WBC 7.53 X 10*3/uL (4.50-10.00)
[2021-05-04] MEDS ORDERED: MORPHINE SULFATE 2 MG/ML SYRINGE IV PRN (14:07)
[2021-05-04] MEDS ORDERED: HALOPERIDOL LACTATE 5 MG/ML 1 ML VIAL IM PRN (14:07)
[2021-05-04] MEDS ORDERED: ONDANSETRON 4 MG/2 ML VIAL IVP PRN (14:07)
[2021-05-04] MEDS ORDERED: DRY MOUTH SPRAY 44.3 SPRAY/44.3 ML SPRAY MUCOUS MEM PRN (14:07)
[2021-05-04] MEDS ORDERED: ATROPINE OPHTH SOLN 1% 5ML BTL SUBLINGUAL PRN (14:07)
[2021-05-05] MEDS: levETIRAcetam 500 MG TAB PO SCH ×2 (07:25→21:06)
--- NOTE | 2021-05-05 10:01 | P.PN ---
Subjective History of Present Illness This is a pleasant 81 years old female from senior living with past medical history of CVA/TIA, Dementia, Hypertension, hypothyroid, CKD stage III, vitamin D defiency, SSS with pacer, occasional incontinence, TIA's. Patient was sent from her senior living for hypotension and syncopal episode, patient was 97/59. Patient is poor historian, she does not follow command although she is awake. She Says Is Called. She Moves Both Upper Extremities Equally, Pupils Are Equally Reactive to Light. Both legs are flexed and patient presents extension. Abdomen looks soft. She is slightly tachypneic and she is on 4 L oxygen via nasal cannula. Patient could not provide more information She is hypertensive, Also she was hypothermic with 95.3. She is slightly tachypneic 20-22. She is saturating 94% on 4 L oxygen via nasal cannula. Labs show an unremarkable CBC, INR 0.9, sodium elevated 148, creatinine elevated at 1.45 Lactic acid elevated 4.6, liver enzymes mostly up at 54 AST and 38 ALT, bilirubin normal 0.9. Urinalysis is not suspicious of infection Occult blood in the stools positive EKG showing normal sinus rhythm at [address]-T changes and QTC is 450. Chest x-ray, patchy perihilar infiltrate and a pleasant developing pneumonia Patient went to the general floor on 4 S., patient became hypotensive with blood pressure 80s over 50s and hyperthermic I discussed the case with the public guardian ms. Lou Carbajal who confirmed to me she is the public guardian for the patient after confirmed the name of date of of the patient. she states that she has history of advanced [place]. She has no family and after discussing the case with the public guardian, she decided to make her go for care, given the severity of her illness and her multiple complex medical problems including advanced dementia she prefer for the patient to be DO NOT RESUSCITATE, with hospice/Comfort Care. Confirmed with the bedside nurse who talked to Ms. Blake as well 05/04/21 Hospice consult was placed per my discussion with public Guardian Ms Lou Carbajal yesterday. I discussed the case with the recurrent hospice nurse is [place] and says the patient is not in pain they cannot accept the patient as in-house. Then director case Madhuri talked to the public guardian again Ms Blake and she does not want the patient to go home with hospice and rather she prefers to start Comfort Care measures here. And per request of the public guardian Comfort Care measures orders were placed and started. Patient is DO NOT RESUSCITATE Very poor prognosis and patient is expected to within days. Patient looks comfortable currently in no distress Objective - Vital Signs Vital signs: Vital Signs Temp 97.9 F 05/04/21 07:42 Pulse 94 05/04/21 08:20 Resp 16 05/04/21 07:42 BP 112/61 05/04/21 08:20 Pulse Ox 95 05/04/21 07:42 Intake & Output 05/03/21 05/04/21 05/04/21 18:59 06:59 18:59 Output Total 200 351 Balance -200 -351 Weight 58.513 kg 58.513 kg Output: Urine 200 351 Uretheral (Rosas) 200 Other: Voiding Method Indwelling Catheter - Exam -GENERAL: The patient is unresponsive CARDIOVASCULAR: S1 and S2 present. No murmurs, rubs, or gallops. PULMONARY: Chest is clear to auscultation, no wheezing or crackles. ABDOMEN: Soft, nontender, nondistended, normoactive bowel sounds. No palpable organomegaly. MUSCULOSKELETAL: No joint swelling or deformity. EXTREMITIES: No cyanosis, clubbing, or pedal edema. NEUROLOGICAL: Gross neurological examination did not reveal any focal deficits. SKIN: No rashes. no petechiae. - Labs CBC & Chem 7: 05/04/21 06:49 05/04/21 06:49 Labs: Abnormal Lab Results - Last 24 Hours (Table) 05/03/21 05/03/21 05/03/21 Range/Units 13:39 13:39 13:39 RBC (4.10-5.20) X 10*6/uL Hgb (12.0-15.0) g/dL Hct (37.2-46.3) % RDW 16.0 H (11.5-15.5) % Plt Count (140-440) X 10*3/uL Plt Count Comment Lymphocytes # (0.90-5.00) X 10*3/uL Lymphocytes # (Manual) 0.28 L (1.0-4.8) k/uL Eosinophils # (0.04-0.35) X 10*3/uL Sodium 148 H (137-145) mmol/L Chloride 110 H (98-107) mmol/L Carbon Dioxide (22-30) mmol/L BUN 38 H (7-17) mg/dL Creatinine 1.45 H (0.52-1.04) mg/dL Glucose 155 H (74-99) mg/dL Plasma Lactic Acid Grant (0.7-2.0) mmol/L AST 54 H (14-36) U/L ALT 38 H (4-34) U/L Total Protein (6.3-8.2) g/dL Albumin 3.2 L (3.5-5.0) g/dL Urine Protein Trace H (Negative) Urine Blood Small H (Negative) Hyaline Casts 21 H (0-2) /lpf Urine Mucus Rare H (None) /hpf 05/03/21 05/03/21 05/04/21 Range/Units 13:39 17:03 06:49 RBC 3.63 L (4.10-5.20) X 10*6/uL Hgb 11.0 L (12.0-15.0) g/dL Hct 33.4 L (37.2-46.3) % RDW 16.1 H (11.5-15.5) % Plt Count 132 L (140-440) X 10*3/uL Plt Count Comment DECREASED A Lymphocytes # 0.51 L (0.90-5.00) X 10*3/uL Lymphocytes # (Manual) (1.0-4.8) k/uL Eosinophils # 0.01 L (0.04-0.35) X 10*3/uL Sodium (137-145) mmol/L Chloride (98-107) mmol/L Carbon Dioxide (22-30) mmol/L BUN (7-17) mg/dL Creatinine (0.52-1.04) mg/dL Glucose (74-99) mg/dL Plasma Lactic Acid Grant 4.6 H* 3.6 H* (0.7-2.0) mmol/L AST (14-36) U/L ALT (4-34) U/L Total Protein (6.3-8.2) g/dL Albumin (3.5-5.0) g/dL Urine Protein (Negative) Urine Blood (Negative) Hyaline Casts (0-2) /lpf Urine Mucus (None) /hpf 05/04/21 Range/Units 06:49 RBC (4.10-5.20) X 10*6/uL Hgb (12.0-15.0) g/dL Hct (37.2-46.3) % RDW (11.5-15.5) % Plt Count (140-440) X 10*3/uL Plt Count Comment Lymphocytes # (0.90-5.00) X 10*3/uL Lymphocytes # (Manual) (1.0-4.8) k/uL Eosinophils # (0.04-0.35) X 10*3/uL Sodium 146 H (137-145) mmol/L Chloride 120 H (98-107) mmol/L Carbon Dioxide 20 L (22-30) mmol/L BUN 35 H (7-17) mg/dL Creatinine 1.07 H (0.52-1.04) mg/dL Glucose (74-99) mg/dL Plasma Lactic Acid Grant (0.7-2.0) mmol/L AST 44 H (14-36) U/L ALT (4-34) U/L Total Protein 5.1 L (6.3-8.2) g/dL Albumin 2.5 L (3.5-5.0) g/dL Urine Protein (Negative) Urine Blood (Negative) Hyaline Casts (0-2) /lpf Urine Mucus (None) /hpf Microbiology - Last 24 Hours (Table) 05/03/21 15:13 Blood Culture Gram Stain - Preliminary Blood 05/03/21 15:13 Blood Culture - Final Blood Assessment and Plan Assessment: End-of-life care, hospice care with comfort care measures Advance/end stage dementia Acute bilateral pneumonia, possible aspiration severe sepsis secondary to above Syncopal episode most likely secondary to hypotension Acute kidney injury Metabolic encephalopathy secondary to above Hypertension Dementia Hypothyroidism Chronic kidney disease stage III 30 Vitamin D deficiency History of sick sinus syndrome status post pacemaker History of CVA/TIA History of seizure Plan: This is a pleasant 81 years old female who presents with bilateral pneumonia Continue with comfort care measures. Discontinue all unnecessary medication. Continue with symptomatic treatment. Resume home medication. Monitor lytes and vitals. DVT and GI prophylaxis. Further recommendations depends on the clinical course of the patient DO NOT RESUSCITATE Prognosis is very poor
[2021-05-05 13:47] VITALS: BMI 21.4
--- NOTE | 2021-05-05 18:22 | P.PN ---
Subjective Progress Note Date: 05/05/21 Principal diagnosis: End-of-life care End-stage dementia Acute bilateral aspiration pneumonia Severe sepsis Acute renal injury 81 years old female from [facility] with past medical history of CVA/TIA, Dementia, Hypertension, hypothyroid, CKD stage III, vitamin D defiency, SSS with pacer, occasional incontinence, TIA's. Patient was sent from her [facility] for hypotension and syncopal episode, patient was 97/59. Patient is poor historian, she does not follow command although she is awake. She Says Is Called. She Moves Both Upper Extremities Equally, Pupils Are Equally Reactive to Light. Both legs are flexed and patient presents extension. Abdomen looks soft. She is slightly tachypneic and she is on 4 L oxygen via nasal cannula. Patient could not provide more information She is hypertensive, Also she was hypothermic with 95.3. She is slightly tachypneic 20-22. She is saturating 94% on 4 L oxygen via nasal cannula. Labs show an unremarkable CBC, INR 0.9, sodium elevated 148, creatinine elevated at 1.45 Lactic acid elevated 4.6, liver enzymes mostly up at 54 AST and 38 ALT, bilirubin normal 0.9. Urinalysis is not suspicious of infection Occult blood in the stools positive EKG showing normal sinus rhythm at [address]-T changes and QTC is 450. Chest x-ray, patchy perihilar infiltrate and a pleasant developing pneumonia Objective - Vital Signs Vital signs: Vital Signs Temp 97.8 F 05/05/21 08:01 Pulse 95 05/05/21 08:01 Resp 12 05/05/21 08:01 BP 157/67 05/05/21 08:01 Pulse Ox 94 L 05/05/21 08:01 Intake & Output 05/04/21 05/05/21 05/05/21 18:59 06:59 18:59 Output Total 500 Balance -500 Output: Urine 500 Other: Voiding Method Indwelling Catheter Indwelling Catheter Indwelling Catheter # Bowel Movements 1 - Exam -GENERAL: The patient is unresponsive CARDIOVASCULAR: S1 and S2 present. No murmurs, rubs, or gallops. PULMONARY: Chest is clear to auscultation, no wheezing or crackles. ABDOMEN: Soft, nontender, nondistended, normoactive bowel sounds. No palpable organomegaly. MUSCULOSKELETAL: No joint swelling or deformity. EXTREMITIES: No cyanosis, clubbing, or pedal edema. NEUROLOGICAL: Gross neurological examination did not reveal any focal deficits. SKIN: No rashes. no petechiae. - Labs CBC & Chem 7: 05/04/21 06:49 05/04/21 06:49 Labs: Abnormal Lab Results - Last 24 Hours (Table) 05/04/21 Range/Units 06:49 RBC 3.63 L (4.10-5.20) X 10*6/uL Hgb 11.0 L (12.0-15.0) g/dL Hct 33.4 L (37.2-46.3) % RDW 16.1 H (11.5-14.5) % Plt Count 132 L (140-440) X 10*3/uL Plt Count Comment DECREASED A Lymphocytes # 0.51 L (0.90-5.00) X 10*3/uL Eosinophils # 0.01 L (0.04-0.35) X 10*3/uL Microbiology - Last 24 Hours (Table) 05/03/21 15:13 Blood Culture Gram Stain - Preliminary Blood Blood Culture - Preliminary Coagulase Negative Staph 05/03/21 15:13 Blood Culture - Preliminary Blood No Growth after 24 hours 05/03/21 15:13 Blood Culture - Final Blood Assessment and Plan Assessment: End-of-life care, hospice care with comfort care measures Advance/end stage dementia Acute bilateral pneumonia, possible aspiration severe sepsis secondary to above Syncopal episode most likely secondary to hypotension Acute kidney injury Metabolic encephalopathy secondary to above Hypertension Dementia Hypothyroidism Chronic kidney disease stage III 30 Vitamin D deficiency History of sick sinus syndrome status post pacemaker History of CVA/TIA History of seizure Plan: This is a pleasant 81 years old female who presents with bilateral pneumonia Continue with comfort care measures. Discontinue all unnecessary medication. Continue with symptomatic treatment. Resume home medication. Monitor lytes and vitals. DVT and GI prophylaxis. Further recommendations depends on the clinical course of the patient DO NOT RESUSCITATE Prognosis is very poor
[2021-05-06] MEDS: levETIRAcetam 500 MG TAB PO SCH ×2 (11:20→20:54)
--- NOTE | 2021-05-06 19:28 | P.PN ---
Subjective Progress Note Date: 05/06/21 Principal diagnosis: End-of-life care End-stage dementia Acute bilateral aspiration pneumonia Severe sepsis Acute renal injury 81 years old female from [facility] with past medical history of CVA/TIA, Dementia, Hypertension, hypothyroid, CKD stage III, vitamin D defiency, SSS with pacer, occasional incontinence, TIA's. Patient was sent from her intermediate for hypotension and syncopal episode, patient was 97/59. Patient is poor historian, she does not follow command although she is awake. She Says Is Called. She Moves Both Upper Extremities Equally, Pupils Are Equally Reactive to Light. Both legs are flexed and patient presents extension. Abdomen looks soft. She is slightly tachypneic and she is on 4 L oxygen via nasal cannula. Patient could not provide more information She is hypertensive, Also she was hypothermic with 95.3. She is slightly tachypneic 20-22. She is saturating 94% on 4 L oxygen via nasal cannula. Labs show an unremarkable CBC, INR 0.9, sodium elevated 148, creatinine elevated at 1.45 Lactic acid elevated 4.6, liver enzymes mostly up at 54 AST and 38 ALT, bilirubin normal 0.9. Urinalysis is not suspicious of infection Occult blood in the stools positive EKG showing normal sinus rhythm at [address]-T changes and QTC is 450. Chest x-ray, patchy perihilar infiltrate and a pleasant developing pneumonia 05/06/2021 Patient is seen and evaluated and discussed with nursing staff; per nursing patient did have episode of rectal bleed which was self-limiting; patient remains comfortable; remains on O2 per nasal cannula Objective - Vital Signs Vital signs: Vital Signs Temp 98.7 F 05/06/21 08:00 Pulse 89 05/06/21 08:00 Resp 18 05/06/21 08:00 BP 146/82 05/06/21 08:00 Pulse Ox 98 05/06/21 08:00 Intake & Output 05/05/21 05/06/21 05/06/21 18:59 06:59 18:59 Output Total 100 Balance -100 Weight 58.513 kg Output: Urine 100 Other: Voiding Method Indwelling Catheter Indwelling Catheter Indwelling Catheter # Voids 750 - Exam -GENERAL: The patient is unresponsive CARDIOVASCULAR: S1 and S2 present. No murmurs, rubs, or gallops. PULMONARY: Chest is clear to auscultation, no wheezing or crackles. ABDOMEN: Soft, nontender, nondistended, normoactive bowel sounds. No palpable organomegaly. MUSCULOSKELETAL: No joint swelling or deformity. EXTREMITIES: No cyanosis, clubbing, or pedal edema. NEUROLOGICAL: Gross neurological examination did not reveal any focal deficits. SKIN: No rashes. no petechiae. - Labs CBC & Chem 7: 05/04/21 06:49 05/04/21 06:49 Labs: Microbiology - Last 24 Hours (Table) 05/03/21 15:13 Blood Culture - Preliminary Blood No Growth after 48 hours 05/03/21 15:13 Blood Culture Gram Stain - Final Blood Blood Culture - Final Coagulase Negative Staph Assessment and Plan Assessment: End-of-life care, hospice care with comfort care measures Advance/end stage dementia Acute bilateral pneumonia, possible aspiration severe sepsis secondary to above Syncopal episode most likely secondary to hypotension Acute kidney injury Metabolic encephalopathy secondary to above Hypertension Dementia Hypothyroidism Chronic kidney disease stage III 30 Vitamin D deficiency History of sick sinus syndrome status post pacemaker History of CVA/TIA History of seizure Plan: This is a pleasant 81 years old female who presents with bilateral pneumonia Continue with comfort care measures. Discontinue all unnecessary medication. Continue with symptomatic treatment. Resume home medication. Monitor lytes and vitals. DVT and GI prophylaxis. Further recommendations depends on the clinical course of the patient DO NOT RESUSCITATE Prognosis is very poor
[2021-05-07] MEDS: levETIRAcetam 500 MG TAB PO SCH ×2 (08:03→20:40)
--- NOTE | 2021-05-07 17:44 | P.PN ---
Subjective Progress Note Date: 05/07/21 Principal diagnosis: End-of-life care End-stage dementia Acute bilateral aspiration pneumonia Severe sepsis Acute renal injury 81 years old female from [facility] with past medical history of CVA/TIA, Dementia, Hypertension, hypothyroid, CKD stage III, vitamin D defiency, SSS with pacer, occasional incontinence, TIA's. Patient was sent from her [facility] for hypotension and syncopal episode, patient was 97/59. Patient is poor historian, she does not follow command although she is awake. She Says Is Called. She Moves Both Upper Extremities Equally, Pupils Are Equally Reactive to Light. Both legs are flexed and patient presents extension. Abdomen looks soft. She is slightly tachypneic and she is on 4 L oxygen via nasal cannula. Patient could not provide more information She is hypertensive, Also she was hypothermic with 95.3. She is slightly tachypneic 20-22. She is saturating 94% on 4 L oxygen via nasal cannula. Labs show an unremarkable CBC, INR 0.9, sodium elevated 148, creatinine elevated at 1.45 Lactic acid elevated 4.6, liver enzymes mostly up at 54 AST and 38 ALT, bilirubin normal 0.9. Urinalysis is not suspicious of infection Occult blood in the stools positive EKG showing normal sinus rhythm at [address]-T changes and QTC is 450. Chest x-ray, patchy perihilar infiltrate and a pleasant developing pneumonia 05/06/2021 Patient is seen and evaluated and discussed with nursing staff; per nursing patient did have episode of rectal bleed which was self-limiting; patient remains comfortable; remains on O2 per nasal cannula 05/07/2021 Patient remains comfortable without any further episodes of rectal bleed Vital signs with a temperature of 97, pulse 80, respirations 17 and blood pressure 155/78 and is saturating 92% on 2 L Objective - Vital Signs Vital signs: Vital Signs Temp 98 F 05/07/21 07:44 Pulse 79 05/07/21 07:44 Resp 17 05/07/21 07:44 BP 168/74 05/07/21 07:44 Pulse Ox 97 05/07/21 07:44 Intake & Output 05/06/21 05/07/21 05/07/21 18:59 06:59 18:59 Intake Total 100 30 Output Total 340 300 Balance -240 -300 30 Intake: Oral 100 30 Output: Urine 340 300 Uretheral (Rosas) 140 Other: Voiding Method Indwelling Catheter Indwelling Catheter Indwelling Catheter - Exam -GENERAL: The patient is unresponsive CARDIOVASCULAR: S1 and S2 present. No murmurs, rubs, or gallops. PULMONARY: Chest is clear to auscultation, no wheezing or crackles. ABDOMEN: Soft, nontender, nondistended, normoactive bowel sounds. No palpable organomegaly. MUSCULOSKELETAL: No joint swelling or deformity. EXTREMITIES: No cyanosis, clubbing, or pedal edema. NEUROLOGICAL: Gross neurological examination did not reveal any focal deficits. SKIN: No rashes. no petechiae. - Labs CBC & Chem 7: 05/04/21 06:49 05/04/21 06:49 Labs: Microbiology - Last 24 Hours (Table) 05/03/21 15:13 Blood Culture - Preliminary Blood No Growth after 72 hours Assessment and Plan Assessment: End-of-life care, hospice care with comfort care measures Advance/end stage dementia Acute bilateral pneumonia, possible aspiration severe sepsis secondary to above Syncopal episode most likely secondary to hypotension Acute kidney injury Metabolic encephalopathy secondary to above Hypertension Dementia Hypothyroidism Chronic kidney disease stage III 30 Vitamin D deficiency History of sick sinus syndrome status post pacemaker History of CVA/TIA History of seizure Plan: This is a pleasant 81 years old female who presents with bilateral pneumonia Continue with comfort care measures. Discontinue all unnecessary medication. Continue with symptomatic treatment. Resume home medication. Monitor lytes and vitals. DVT and GI prophylaxis. Further recommendations depends on the clinical course of the patient DO NOT RESUSCITATE Prognosis is very poor
[2021-05-08] MEDS: levETIRAcetam 500 MG TAB PO SCH ×2 (09:36→20:24)
--- NOTE | 2021-05-08 14:22 | P.PN ---
Subjective History of Present Illness This is a pleasant 81 years old female from [facility] with past medical history of CVA/TIA, Dementia, Hypertension, hypothyroid, CKD stage III, vitamin D defiency, SSS with pacer, occasional incontinence, TIA's. Patient was sent from her [facility] for hypotension and syncopal episode, patient was 97/59. Patient is poor historian, she does not follow command although she is awake. She Says Is Called. She Moves Both Upper Extremities Equally, Pupils Are Equally Reactive to Light. Both legs are flexed and patient presents extension. Abdomen looks soft. She is slightly tachypneic and she is on 4 L oxygen via nasal cannula. Patient could not provide more information She is hypertensive, Also she was hypothermic with 95.3. She is slightly tachypneic 20-22. She is saturating 94% on 4 L oxygen via nasal cannula. Labs show an unremarkable CBC, INR 0.9, sodium elevated 148, creatinine elevated at 1.45 Lactic acid elevated 4.6, liver enzymes mostly up at 54 AST and 38 ALT, bilirubin normal 0.9. Urinalysis is not suspicious of infection Occult blood in the stools positive EKG showing normal sinus rhythm at [address]-T changes and QTC is 450. Chest x-ray, patchy perihilar infiltrate and a pleasant developing pneumonia Patient went to the general floor on 4 S., patient became hypotensive with blood pressure 80s over 50s and hyperthermic I discussed the case with the public guardian ms. Lou Carbajal who confirmed to me she is the public guardian for the patient after confirmed the name of date of of the patient. she states that she has history of advanced [place]. She has no family and after discussing the case with the public guardian, she decided to make her go for care, given the severity of her illness and her multiple complex medical problems including advanced dementia she prefer for the patient to be DO NOT RESUSCITATE, with hospice/Comfort Care. Confirmed with the bedside nurse who talked to Ms. Blake as well 05/04/21 Hospice consult was placed per my discussion with public Guardian Ms Lou Carbajal yesterday. I discussed the case with the recurrent hospice nurse is [place] and says the patient is not in pain they cannot accept the patient as in-house. Then protective services case worker Madhuri talked to the public guardian again Ms Blake and she does not want the patient to go home with hospice and rather she prefers to start Comfort Care measures here. And per request of the public guardian Comfort Care measures orders were placed and started. Patient is DO NOT RESUSCITATE Very poor prognosis and patient is expected to within days. Patient looks comfortable currently in no distress 05/08/2021 Patient still with Comfort Care measures per request of her public guardian request Patient looks comfortable. Occasionally answers yes when We talk to her but she does not look to understand. She is sleepy and mostly obtunded. And she confirmed to me that her baseline is advanced dementia I discussed the case today with Jude from her public guardian and they want her to go back to her home with hospice care. I discussed with protective services case worker on the case and possible would be discharged to her home with [facility] with hospice care today once arrangement been made Objective - Vital Signs Vital signs: Vital Signs Temp 100.3 F H 05/08/21 13:36 Pulse 83 05/08/21 13:36 Resp 16 05/08/21 13:36 BP 121/66 05/08/21 13:36 Pulse Ox 92 L 05/08/21 13:36 Intake & Output 05/07/21 05/08/21 05/08/21 18:59 06:59 18:59 Intake Total 330 Output Total 750 Balance 330 -750 Intake: Oral 330 Output: Urine 750 Other: Voiding Method Indwelling Catheter Incontinent Indwelling Catheter Indwelling Catheter # Bowel Movements 1 - Exam -GENERAL: The patient is unresponsive CARDIOVASCULAR: S1 and S2 present. No murmurs, rubs, or gallops. PULMONARY: Chest is clear to auscultation, no wheezing or crackles. ABDOMEN: Soft, nontender, nondistended, normoactive bowel sounds. No palpable organomegaly. MUSCULOSKELETAL: No joint swelling or deformity. EXTREMITIES: No cyanosis, clubbing, or pedal edema. NEUROLOGICAL: Gross neurological examination did not reveal any focal deficits. SKIN: No rashes. no petechiae. - Labs CBC & Chem 7: 05/04/21 06:49 05/04/21 06:49 Labs: Microbiology - Last 24 Hours (Table) 05/03/21 15:13 Blood Culture - Preliminary Blood No Growth after 96 hours Assessment and Plan Assessment: End-of-life care, hospice care with comfort care measures Advance/end stage dementia Acute bilateral pneumonia, possible aspiration severe sepsis secondary to above Syncopal episode most likely secondary to hypotension Acute kidney injury Metabolic encephalopathy secondary to above Hypertension Dementia Hypothyroidism Chronic kidney disease stage III 30 Vitamin D deficiency History of sick sinus syndrome status post pacemaker History of CVA/TIA History of seizure Plan: This is a pleasant 81 years old female who presents with bilateral pneumonia Continue with comfort care measures. Discontinue all unnecessary medication. Discharged to her home with hospice and arrangements made today Continue with symptomatic treatment. Resume home medication. Monitor lytes and vitals. DVT and GI prophylaxis. Further recommendations depends on the clinical course of the patient DO NOT RESUSCITATE Prognosis is very poor
[2021-05-09] MEDS: levETIRAcetam 500 MG TAB PO SCH (09:21)
--- NOTE | 2021-05-09 12:42 | P.DS ---
Providers Date of admission: 05/03/21 15:03 Attending physician: Ric Constantino MD Primary care physician: [facility] Hospital Course: Diagnoses: End-of-life care, hospice care with comfort care measures Advance/end stage dementia Acute bilateral pneumonia, possible aspiration severe sepsis secondary to above Syncopal episode most likely secondary to hypotension Acute kidney injury Metabolic encephalopathy secondary to above Hypertension Dementia Hypothyroidism Chronic kidney disease stage III Vitamin D deficiency History of sick sinus syndrome status post pacemaker History of CVA/TIA History of seizure Hospital course This is a pleasant 81 years old female from jail with past medical history of CVA/TIA, Dementia, Hypertension, hypothyroid, CKD stage III, vitamin D defiency, SSS with pacer, occasional incontinence, TIA's. Patient was sent from her jail for hypotension and syncopal episode, patient was 97/59. Patient is poor historian, she does not follow command although she is awake. She became more obtunded and unresponsive. Most likely patient has severe sepsis secondary to pneumonia. I discussed the case with public Guardian Ms Lou Carbajal, And wanted the patient to be hospice/Comfort Care measures. Hospice team consult accepted the patient. Patient Comfort Care measures were started the patient looks comfortable. As per my discussion with Jude public guardian yesterday they want her to be disch arged home with hospice, which looks appropriate given her advanced/end stage dementia with severe sepsis per my discussion with her public guardian and examination the patient and reviewing the patient condition and chart. Patient has a DO NOT RESUSCITATE order Prognosis is extremely poor Physical exam Gen: patient is unresponsive CVS: S1-S2, RRR, no murmur Lungs: B/L CTA, no wheezing Abdomen: soft, no distention, no tenderness, positive bowel sounds Extremity: no leg edema or induration Time spent more than 35 minutes Patient Condition at Discharge: Stable Plan - Discharge Summary Discharge Rx Participant: No New Discharge Prescriptions: No Action Memantine [Namenda] 10 mg PO BID@0800,1999 Aspirin EC [Ecotrin Low Dose] 81 mg PO DAILY@0800 Cyanocobalamin (Vitamin B-12) [Vitamin B-12] 1,000 mcg PO DAILY@0800 busPIRone HCl [Buspar] 5 mg PO BID@0800,1999 Cholecalciferol [Vitamin D3 (25 Mcg = 1000 Iu)] 1,000 unit PO Q48H Docusate [Colace] 100 mg PO BID@799,1999 amLODIPine [Norvasc] 5 mg PO HS@1999 Irbesartan [Avapro] 75 mg PO HS@1999 QUEtiapine FUMARATE [SEROquel] 12.5 - 25 mg PO BID PRN PRN Reason: Agitation Mirtazapine [Remeron] 15 mg PO HS@1999 levETIRAcetam [Keppra] 500 mg PO BID@799,1999 Levothyroxine Sodium [Synthroid] 100 mcg PO DAILY@0800 Discharge Medication List Aspirin EC [Ecotrin Low Dose] 81 mg PO DAILY@0800 08/17/19 [History] Memantine [Namenda] 10 mg PO BID@799,199908/17/19 [History] Cholecalciferol [Vitamin D3 (25 Mcg = 1000 Iu)] 1,000 unit PO Q48H 08/18/20 [History] Cyanocobalamin (Vitamin B-12) [Vitamin B-12] 1,000 mcg PO DAILY@0800 08/18/20 [History] Docusate [Colace] 100 mg PO BID@799,199908/18/20 [History] amLODIPine [Norvasc] 5 mg PO HS@199908/18/20 [History] busPIRone HCl [Buspar] 5 mg PO BID@799,199908/18/20 [History] Irbesartan [Avapro] 75 mg PO HS@199905/03/21 [History] Levothyroxine Sodium [Synthroid] 100 mcg PO DAILY@0805/03/21 [History] Mirtazapine [Remeron] 15 mg PO HS@199905/03/21 [History] QUEtiapine FUMARATE [SEROquel] 12.5 - 25 mg PO BID PRN 05/03/21 [History] levETIRAcetam [Keppra] 500 mg PO BID@799,199905/03/21 [History] Follow up Appointment(s)/Referral(s): [facility] [[facility]] - ([facility] patient [facility] at [facility]. ) William Baires MD [Primary Care Provider] - 1-2 days Activity/Diet/Wound Care/Special Instructions: [facility]-[phone]
[2021-05-09 13:55] VITALS: BP 119/60; PULSE 79; RESP 12; TEMP 99
== END 2021-05-09 18:09 | disposition hospice, home (50) | DRG 871 ==
LOC: EC 13:16 → SUPCPDRO 13:16 → 4SSUR 15:03
PROVIDERS: ADMIT Internal Medicine; ATTEND Internal Medicine
DX: A41.9 Sepsis, unspecified organism (principal); J18.9 Pneumonia, unspecified organism; G93.41 Metabolic encephalopathy; J69.0 Pneumonitis due to inhalation of food and vomit; N17.9 Acute kidney failure, unspecified; K62.5 Hemorrhage of anus and rectum; R65.20 Severe sepsis without septic shock; Z51.5 Encounter for palliative care; I95.9 Hypotension, unspecified; F03.90 Unspecified dementia, unspecified severity, without behavioral disturbance, psychotic disturbance, mood disturbance, and anxiety; E03.9 Hypothyroidism, unspecified; I12.9 Hypertensive chronic kidney disease with stage 1 through stage 4 chronic kidney disease, or unspecified chronic kidney disease; E86.0 Dehydration; Z20.822 Contact with and (suspected) exposure to COVID-19; W19.XXXA Unspecified fall, initial encounter; N18.30 Chronic kidney disease, stage 3 unspecified; E55.9 Vitamin D deficiency, unspecified; I49.5 Sick sinus syndrome; Z66 Do not resuscitate; Z79.82 Long term (current) use of aspirin; Z79.890 Hormone replacement therapy; Z79.899 Other long term (current) drug therapy; Z95.0 Presence of cardiac pacemaker; Z86.73 Personal history of transient ischemic attack (TIA), and cerebral infarction without residual deficits; Y92.002 Bathroom of unspecified non-institutional (private) residence as the place of occurrence of the external cause
CPT/HCPCS: 36415; 70450; 71045; 72125; 80053; 81001; 82272; 83605; 83735; 84484; 85025; 85610; 85730; 86850; 86900; 86901; 87040; 87635; 93005; 96361; 96374; 96375; 99285